=== PATIENT | male | born 1985 | race Caucasian/White ===

== ENCOUNTER 2017-09-19 10:56 | Emergency (ER) | payer OTHER ==
[~2017-09-19] VITALS: Ht 182.9 cm; Wt 111.1 kg
[2017-09-19] MEDS ORDERED: AZIT250 PO (11:12)
[2017-09-19] MEDS ORDERED: Cleocin HCl300 MG PO (11:39)
[2017-09-19] MEDS ORDERED: Ultram50 MG PO (11:39)
== END 2017-09-19 12:00 | disposition home or self-care (01) ==
LOC: ER 10:56
DX: K02.9 Dental caries, unspecified (principal); Z79.2 Long term (current) use of antibiotics
CPT/HCPCS: 99283

== ENCOUNTER 2019-09-13 10:37 | Emergency (ER) | payer SELFPAY ==
[~2019-09-13] VITALS: Ht 177.8 cm; Wt 113.4 kg
[~2019-09-13 10:37] MED LIST: AZIT250 PO; Bactrim Ds Tab1 EACH PO; CEPH500 PO; Cleocin HCl300 MG PO; Ultram50 MG PO
[2019-09-13] MEDS ORDERED: IBUP800 PO (11:51)
[2019-09-13] MEDS ORDERED: Percocet 5-3251 EACH PO (11:51)
[2019-09-13] MEDS ORDERED: CRUTCH2 XX (12:03)
== END 2019-09-13 12:08 | disposition home or self-care (01) ==
LOC: ER 10:37
DX: S82.301A Unspecified fracture of lower end of right tibia, initial encounter for closed fracture (principal); S82.831A Other fracture of upper and lower end of right fibula, initial encounter for closed fracture; Z87.891 Personal history of nicotine dependence; X58.XXXA Exposure to other specified factors, initial encounter
CPT/HCPCS: 29515; 73590; 73610; 73630; 99283-25

== ENCOUNTER 2019-09-28 21:31 | Emergency (ER) | payer SELFPAY ==
[~2019-09-28] VITALS: Ht 182.9 cm; Wt 117.9 kg
[~2019-09-28 21:31] MED LIST changes: +CRUTCH2 XX; +IBUP800 PO; +Percocet 5-3251 EACH PO
[2019-09-28] MEDS ORDERED: NARCAN4 MG (22:20)
== END 2019-09-28 23:07 | disposition home or self-care (01) ==
LOC: ER 21:31
DX: T40.2X1A Poisoning by other opioids, accidental (unintentional), initial encounter (principal); G89.29 Other chronic pain; M25.579 Pain in unspecified ankle and joints of unspecified foot; F17.210 Nicotine dependence, cigarettes, uncomplicated
CPT/HCPCS: 99284

== ENCOUNTER 2020-04-08 02:16 | Observation (INO) | payer OTHER ==
[~2020-04-08] VITALS: Ht 185.4 cm; Wt 120.2 kg
[~2020-04-08 02:16] MED LIST changes: +NARCAN4 MG
[2020-04-08 03:21] LABS: Source, Urine Clean Catch
[2020-04-08 03:27] LABS: BASOPHILS ABSOLUTE AUTO 0.07 K/mm3 (0.00-0.23); BASOPHILS PERCENT AUTO 1 % (0-2); EOSINOPHILS ABSOLUTE AUTO 0.14 K/mm3 (0.00-0.68); EOSINOPHILS PERCENT AUTO 1 % (0-6); Hematocrit 49.3 % (37.0-53.0); Hemoglobin 16.6 g/dL (13.5-17.5); IMMATURE GRAN ABSOLUTE AUTO 0.06 K/mm3 (0.00-0.10); IMMATURE GRAN PERCENT AUTO 0 % (0-1); LYMPHOCYTES ABSOLUTE AUTO 1.71 K/mm3 (0.84-5.20); LYMPHOCYTES PERCENT AUTO 13 % (21-46); MONOCYTES ABSOLUTE AUTO 0.89 K/mm3 (0.16-1.47); MONOCYTES PERCENT AUTO 7 % (4-13); Mean Corpuscular HGB Conc 33.7 g/dL (31.5-36.5); Mean Corpuscular Volume 92 fL (80-100); NEUTROPHILS ABSOLUTE AUTO 10.74 K/mm3 (1.96-9.15); NEUTROPHILS PERCENT AUTO 79 % (41-73); Platelet Count 234 K/mm3 (150-400); RDW Coefficient Variation 11.6 % (11.7-14.2); RDW Standard Deviation 39.1 fL (35.1-46.3); Red Blood Cell Count 5.35 M/mm3 (4.30-5.90); White Blood Cell Count 13.61 K/mm3 (4.00-11.30)
[2020-04-08 03:27] LABS: Bilirubin, Urine Neg (Neg); Blood, Urine 1+ (Neg); Glucose Qualitative, Urine 4+ (Neg); Ketones, Urine 1+ (Neg); Leukocyte Esterase, Urine 2+ (Neg); Nitrite, Urine Pos (Neg); Protein, Urine 3+ (Neg); Urobilinogen, Urine NORM (Normal)
[2020-04-08 03:29] LABS: Appearance, Urine Cloudy (Clear); Color, Urine Yellow (P-Yellow)
[2020-04-08 03:35] LABS: Bacteria Many /hpf; Red Blood Cells, Urine 0-2 /hpf (0-2); Squamous Epithelial Cells Not Seen /hpf (Few); White Blood Cells, Urine 25-50 /hpf (0-5)
[2020-04-08 03:36] LABS: U Amphetamine Screen DETECTED; U Barbituate Screen Not Detected; U Benzodiazapine Screen Not Detected; U Buprenorphine Screen Not Detected; U Cannabinoids Screen DETECTED; U Cocaine Screen Not Detected; U Methadone Screen Not Detected; U Methamphetamine Screen DETECTED; U Opiates Screen Not Detected; U Oxycodone Screen Not Detected; U Phencyclidine Screen Not Detected; U Propoxyphene Screen Not Detected
[2020-04-08 03:41] LABS: International Normalized Ratio 1.02; Prothrombin Time Results 10.9 Sec (9.7-11.5)
[2020-04-08 03:46] LABS: Alanine Aminotransfer (ALT/SGP 302 U/L (12-78); Albumin, Blood 4.2 g/dL (3.4-5.0); Albumin/Globulin Ratio 0.9 (0.8-1.8); Alk Phos 134 U/L (50-136); Anion Gap 12 mmol/L (6-16); Aspartate Aminotrans (AST/SGOT 258 U/L (12-37); Bilirubin, Total 0.7 mg/dL (0.1-1.0); Blood Urea Nitrogen 16 mg/dL (8-24); Bun/Creatinine Ratio 25.9 (12.0-20.0); CO2, Blood 23 mmol/L (21-32); CPK Creatine Kinase 383 U/L (39-308); Chloride, Blood 104 mmol/L (98-108); Creatinine, Blood 0.62 mg/dL (0.60-1.20); Ethanol (Alcohol), Blood, Med <3 mg/dL; Globulin, Blood 4.5 g/dL (2.2-4.0); Glomerular Filtration Rate >60 (60-); Glucose, Blood 383 mg/dL (70-99); Potassium, Blood 3.8 mmol/L (3.5-5.5); Salicylate 2.6 mg/dL (2.8-20.0); Sodium, Blood 139 mmol/L (136-145); Total Protein, Blood 8.7 g/dL (6.4-8.2)
[2020-04-08 03:56] LABS: Acetaminophen, Random <2.0 ug/mL (10.0-30.0)
[2020-04-08 04:01] LABS: Osmolality, Serum 318 mos/KG (275-300)
[2020-04-08 04:15] LABS: Creatine Kinase MB 2.6 ng/mL (0.0-3.6); Creatine Kinase MB Index 0.7 (0.0-4.0)
== END 2020-04-08 11:30 | disposition home or self-care (01) ==
LOC: ER 02:16 → EOR 02:17
PROVIDERS: ADMIT Emergency Medicine
DX: R45.1 Restlessness and agitation (principal); T40.995A Adverse effect of other psychodysleptics [hallucinogens], initial encounter; F17.210 Nicotine dependence, cigarettes, uncomplicated; Z79.899 Other long term (current) drug therapy
CPT/HCPCS: 36415; 70450; 70486; 72125; 80053; 81001; 82550; 82553; 83930; 85025; 85610; 87077; 87086; 87186; 93005; 93010; 96374; 96375; 96376; 99285-25; G0378; G0480; J1630; J2060

== ENCOUNTER 2020-05-30 23:23 | Inpatient (IN) | payer OTHER ==
[~2020-05-30] VITALS: Ht 182.9 cm; Wt 102.4 kg
[2020-05-31 01:49] LABS: BASOPHILS PERCENT AUTO 1 % (0-2); EOSINOPHILS ABSOLUTE AUTO 0.05 K/mm3 (0.00-0.68); EOSINOPHILS PERCENT AUTO 0 % (0-6); Hematocrit 32.2 % (37.0-53.0); Hemoglobin 10.6 g/dL (13.5-17.5); IMMATURE GRAN ABSOLUTE AUTO 0.98 K/mm3 (0.00-0.10); IMMATURE GRAN PERCENT AUTO 8 % (0-1); LYMPHOCYTES ABSOLUTE AUTO 1.13 K/mm3 (0.84-5.20); LYMPHOCYTES PERCENT AUTO 9 % (21-46); MONOCYTES ABSOLUTE AUTO 1.79 K/mm3 (0.16-1.47); MONOCYTES PERCENT AUTO 14 % (4-13); Mean Corpuscular HGB 30.7 pg (26.0-34.0); Mean Corpuscular HGB Conc 32.9 g/dL (31.5-36.5); Mean Corpuscular Volume 93 fL (80-100); Mean Platelet Volume 10.6 fL (9.1-12.4); NEUTROPHILS ABSOLUTE AUTO 8.35 K/mm3 (1.96-9.15); NEUTROPHILS PERCENT AUTO 67 % (41-73); Platelet Count 305 K/mm3 (150-400); RDW Coefficient Variation 12.9 % (11.7-14.2); RDW Standard Deviation 44.1 fL (35.1-46.3); Red Blood Cell Count 3.45 M/mm3 (4.30-5.90)
[2020-05-31 02:09] LABS: BAND PERCENT MAN 20 % (0-8); BASOPHILS PERCENT MAN 0 % (0-2); EOSINOPHILS ABSOLUTE MAN 0.24 K/mm3 (0.00-0.68); EOSINOPHILS PERCENT MAN 2 % (0-6); LYMPHOCYTES ABSOLUTE MAN 0.49 K/mm3 (0.84-5.20); LYMPHOCYTES PERCENT MAN 4 % (21-46); MONOCYTES ABSOLUTE MAN 0.99 K/mm3 (0.16-1.47); MONOCYTES PERCENT MAN 8 % (4-13); MYELOCYTE ABSOLUTE MAN 0.24 K/mm3 (0.00-0.00); MYELOCYTE PERCENT MAN 2 % (0-0); NEUTROPHILS ABSOLUTE MAN 10.41 K/mm3 (1.96-9.15); SEG NEUTROPHILS PERCENT MAN 64 % (41-73); TOTAL CELLS COUNTED 100
[2020-05-31 02:35] LABS: Alanine Aminotransfer (ALT/SGP 46 U/L (12-78); Albumin, Blood 1.4 g/dL (3.4-5.0); Albumin/Globulin Ratio 0.3 (0.8-1.8); Alk Phos 209 U/L (50-136); Anion Gap 7 mmol/L (6-16); Aspartate Aminotrans (AST/SGOT 30 U/L (12-37); Bilirubin, Total 0.4 mg/dL (0.1-1.0); Blood Urea Nitrogen 22 mg/dL (8-24); Bun/Creatinine Ratio 37.5 (12.0-20.0); CO2, Blood 28 mmol/L (21-32); Calcium, Blood 8.4 mg/dL (8.5-10.1); Chloride, Blood 86 mmol/L (98-108); Creatinine, Blood 0.59 mg/dL (0.60-1.20); Globulin, Blood 4.8 g/dL (2.2-4.0); Glomerular Filtration Rate >60 (60-); Glucose, Blood 870 mg/dL (70-99); Potassium, Blood 5.4 mmol/L (3.5-5.5); Sodium, Blood 121 mmol/L (136-145); Total Protein, Blood 6.2 g/dL (6.4-8.2)
[2020-05-31 04:52] LABS: Glucose, Blood 597 mg/dL (70-99)
[2020-05-31 06:33] LABS: Hematocrit 30.4 % (37.0-53.0); Hemoglobin 10.4 g/dL (13.5-17.5); Mean Corpuscular HGB 30.8 pg (26.0-34.0); Mean Corpuscular HGB Conc 34.2 g/dL (31.5-36.5); Mean Corpuscular Volume 90 fL (80-100); Mean Platelet Volume 10.2 fL (9.1-12.4); Platelet Count 304 K/mm3 (150-400); RDW Coefficient Variation 12.4 % (11.7-14.2); RDW Standard Deviation 41.1 fL (35.1-46.3); Red Blood Cell Count 3.38 M/mm3 (4.30-5.90); White Blood Cell Count 12.73 K/mm3 (4.00-11.30)
[2020-05-31 07:02] LABS: Alanine Aminotransfer (ALT/SGP 48 U/L (12-78); Albumin, Blood 1.4 g/dL (3.4-5.0); Albumin/Globulin Ratio 0.3 (0.8-1.8); Alk Phos 188 U/L (50-136); Anion Gap 9 mmol/L (6-16); Aspartate Aminotrans (AST/SGOT 33 U/L (12-37); Bilirubin, Total 0.5 mg/dL (0.1-1.0); Blood Urea Nitrogen 19 mg/dL (8-24); Bun/Creatinine Ratio 34.7 (12.0-20.0); CO2, Blood 28 mmol/L (21-32); Calcium, Blood 8.3 mg/dL (8.5-10.1); Chloride, Blood 96 mmol/L (98-108); Creatinine, Blood 0.55 mg/dL (0.60-1.20); Globulin, Blood 4.8 g/dL (2.2-4.0); Glomerular Filtration Rate >60 (60-); Glucose, Blood 456 mg/dL (70-99); Potassium, Blood 3.9 mmol/L (3.5-5.5); Sodium, Blood 133 mmol/L (136-145); Total Protein, Blood 6.2 g/dL (6.4-8.2)
[2020-05-31 07:08] LABS: BAND PERCENT MAN 22 % (0-8); BASOPHILS PERCENT MAN 0 % (0-2); EOSINOPHILS PERCENT MAN 0 % (0-6); LYMPHOCYTES ABSOLUTE MAN 1.14 K/mm3 (0.84-5.20); LYMPHOCYTES PERCENT MAN 9 % (21-46); METAMYELOCYTE ABSOLUTE MAN 0.12 K/mm3 (0.00-0.00); METAMYELOCYTE PERCENT MAN 1 % (0-0); MONOCYTES ABSOLUTE MAN 1.27 K/mm3 (0.16-1.47); MONOCYTES PERCENT MAN 10 % (4-13); NEUTROPHILS ABSOLUTE MAN 10.18 K/mm3 (1.96-9.15); SEG NEUTROPHILS PERCENT MAN 58 % (41-73); TOTAL CELLS COUNTED 100
--- NOTE | 2020-05-31 07:13 | NUR ---
ASSESSMENT/ADMIT PT ADMITTED TO ICU 02 AT 0545. PT ARRIVED VIA GURNEY. STOOD AND TRANSFERED WITH STANDBY ASSIST. LUNGS CLEAR ON ROOM AIR. RESP EVEN AND NONLABORED. DENIES SOB. NONPRODUCTIVE COUGHT NOTED. HEART RATE TACHY 120-130. BP STABLE. RIGHT SHOULDER RED, HOT TO TOUCH AND TIGHT. PHOTO TAKEN AND EDGES MARKED. BT+ ABD SOFT AND NONTENDER. DENIES N/V. PT STATES,"I'M REALLY THIRSTY AND WANT SOMETHING TO DRINK". EXPLAINED NPO DUE TO POSSIBLE SURG. IV 20G TO RIGHT HAND WITH NS BOLUS INFUSING AND INSULIN AT 5 UNITS. BLOOD GLUCOSE 456. CONT INSULIN AT 5 UNITS AT THIS TIME. PT ANSWERING QUESTIONS APPROP. C/O PAIN TO RIGHT SHOULDER "03/30" PT MED WITH FENTANYL 50 MCQ AND TORADOL AT 0652. PT REPORTS PAIN IS "BETTER". REPORT GIVEN TO FARIHA BOYER RN.
[2020-05-31 07:27] LABS: Glucose, Blood 461 mg/dL (70-99)
[2020-05-31 08:49] LABS: Influenza A, PCR Negative (NEGATIVE); Influenza B, PCR Negative (NEGATIVE); Resp Syncytial Virus, PCR Negative (NEGATIVE); SARS-Cov-2 (COVID-19) PCR, MMC Negative (NEGATIVE)
--- NOTE | 2020-05-31 08:53 | NUR ---
Echocardiogram completed.
--- NOTE | 2020-05-31 09:13 | NUR ---
PT A/O AND STATES THAT R SHOULDER PAIN IS IMPROVED AFTER MEDS. PT IS ABLE TO MOVE ARM BUT WITH PAIN. R SHOULDER IS VISABLE SWOLLEN AND RED AND MARKED. XRAY IN TO EVALUATE AND COVID SWAB SENT. NS BOLUS COMPLETE AND NS TO 100ML, AND INSULIN GTT AT 5UNITS AND PER CBG CHECKS. PT IS VOIDING, NO RESP. DISTRESS OTHER THAN SHOULDER. ILANA GOMES SPOKE WITH RE PO MEDS AND S.T. HAS BEEN CONTACTED FOR PO INTAKE.
--- NOTE | 2020-05-31 10:56 | NUR ---
PT REQUESTING TO LEAVE AMA PT AGGITATED IN ROOM, PULLING OFF BLOOD PRESSURE CUFF AND REQUESTING IVS BE REMOVED. TALKED WITH PT ABOUT THE SEVERITY OF THE INFECTION IN HIS SHOULDER AND THE RISKS OF LEAVING. PT. REPORTS UNDERSTANDING THE RISKS, AND STATES "I DONT CARE I WANT TO LEAVE, I THOUGHT THIS WAS GOING TO HAPPEN THIS MORNING AND IM UNCOMFORTABLE AND THIRSTY AND IM LEAVING". OFFERED ORAL CARE WHICH PT REFUSED. SPOKE WITH OR TO FIND OUT ABOUT TIME FOR POSSIBLE PROCEDURE PER PT REQUEST, AND NOTIFIED THEM THAT PT WAS WANTING TO LEAVE AMA. PER OR STAFF APPROX 2 HOURS UNTIL PROCEDURE. PT NOTIFIED OF THIS, AND DICUSSED WITH PT RISKS VS WAITING FOR A COUPLE OF HOURS. PT. FRUSTRATED HOWEVER AGGREED TO STAY FOR PROCEDURE AT THIS TIME. PRIMARY RN NOTIFIED. CALL LIGHT IN REACH.
--- NOTE | 2020-05-31 11:24 | NUR ---
1050 PT REQUESTING TO LEAVE AMA. CONTACT MADE WITH DR CORONADO AND PT TO GO TO SURG. IN APPROX 2 HOURS. PT EDUCATED TO REASONS TO STAY IN HOSP AND BLOOD SUGARS WITH SHOULDER ISSUES WERE ADDRESSES WITH PT. AFTER THINKING AND TALKING TO SHOPPERBENIGNO SULLIVAN, PT AGGREED TO STAY FOR NOW. DR CORONADO TENTITIVE PLAN SHARED WITH PT.
--- NOTE | 2020-05-31 11:47 | NUR ---
PT PAIN IS NOT GONE BUT HE IS MANNAGING AT THE CURRENT STATE. PT BP SL ELEVATED, REPORTED AND WILL FOLLOW. PT DOES NOTE APPEAR TO BE IN DT'S. PT HAS STOOD TO VOID AND WILL OBTAIN U.A. KEITH. INSULIN GTT IS AT 5 UNITS/HR AND THIS WAS REPORTED TO DR GALINDO AND DAY SURG. RN. PT HAS TAKEN ICE CHIPS BUT OTHERWISE NPO. NO LOVENOX OBTAINED FOR DVT ISSUES DUE TO PENDING SURGERY.
--- NOTE | 2020-05-31 12:54 | NUR ---
PT TO OR VIA [facility].
--- NOTE | 2020-05-31 13:15 | NUR ---
History, Chart, Medications and Allergies reviewed before start of procedure.Lungs clear T/O to Auscultation. Patient confirms NPO status and agrees with scheduled surgery. Pre-Op teaching done. Pt verbalizes understanding.
--- NOTE | 2020-05-31 13:41 | NUR ---
1300-NACHO PT TO SURG. WITH STAFF. PT REMAINS ON INSULIN GTT, NS 100 ML, VANCOMYCIN IVPB.
--- NOTE | 2020-05-31 16:23 | NUR ---
05/31/20 1623 Elle Cordon RASMUSSEN CATH INSERTED BY ABEL SMILEY PER DR. OLMEDO ORDERS. NO URINE FLASH, BRIGHT RED BLOOD FLASH. RASMUSSEN WAS REMOVED AND DR. CORONADO ATTEMPTED TO PLACE ANOTHER RASMUSSEN, NO URINE FLASH. RASMUSSEN FLUSHED WITH WATER. RASMUSSEN REMAINED FOR THE PROCEDURE. NO URINE DRAINED INTO BAG. BLADDER SCAN DONE, 650CC OF FLUID NOTED IN BLADDER. DR. CORONADO ATTEMPTED TO PLACE ANOTHER RASMUSSEN AND ONLY GOT BLOOD BACK. RASMUSSEN REMOVED. WHILE PT WAS WAS EMERGING FROM ANESTHDSIA BLOOD CLOT AND URINE EXPELLED FROM THE PT'S BLADDER SOAKING BED SHEETS. REPORT GIVEN TO PACU STAFF, DARIAN HERRING RN.
--- NOTE | 2020-05-31 19:03 | NUR ---
SUMMARY AND TRANFSER NOTE. REPORT CALLED TO POLINA PELAEZ ON SURG FLOOR AT 1830 AND PT TO TRANSFER TO FLOOR ON PACU [facility]. PT IS TAKING PO WELL AND VERBALIZING PLEASURE IN HAVING MADE THE RIGHT DECISION TO STAY IN HOSPITAL AND HAVE THE SURGERY. PT DENIES PAIN CURRENTLY. VS NOTED. PT IV NS AT 125 ML AND ABX INFUSING FROM [address] PRYOR ORDERED THE CONTINUATION OF PRIOR MEDS AND ABX WITH INSULLIN CHANGE TO SC AC/HS. PT WOUND VAC IS DRAINING PURULANT DRAINAGE OF BLOODY AND PUSSY TISSUE DRAINAGE. PT CURRENTLY HAS 3 PERIPHERAL IV SITES. PT EXPRESSED GRATFULNESS FOR HIS CARE AND WAS TRANSFERED TO 230 SURG FLOOR PER [facility]. PT WAS AGAIN ABLE TO SAKU254 ML OF DARK ORANGE URNINE W/O EVIDENCE OF VISUAL BLOOD EXCEPT AROUND THE LID OF URINAL AND PT ABLE TO MAKE A STREAM OF URNINE.
[2020-05-31 20:29] LABS: Vancomycin, Trough 7.4 ug/mL (5.0-10.0)
[2020-05-31 21:32] LABS: Source, Urine Clean Catch
[2020-05-31 21:34] LABS: Bilirubin, Urine Neg (Neg); Blood, Urine 5+ (Neg); Glucose Qualitative, Urine 4+ (Neg); Ketones, Urine 1+ (Neg); Leukocyte Esterase, Urine 1+ (Neg); Nitrite, Urine Neg (Neg); Protein, Urine 1+ (Neg); Urobilinogen, Urine NORM (Normal); pH, Urine 6.5 (5.0-8.0)
[2020-05-31 21:39] LABS: Appearance, Urine Clear (Clear); Color, Urine Yellow (P-Yellow)
[2020-05-31 21:41] LABS: Bacteria Mod /hpf; Red Blood Cells, Urine 50-100 /hpf (0-2); Squamous Epithelial Cells Few /hpf (Few)
[2020-05-31 21:53] LABS: U Amphetamine Screen Not Detected; U Barbituate Screen Not Detected; U Benzodiazapine Screen Not Detected; U Buprenorphine Screen Not Detected; U Cannabinoids Screen DETECTED; U Cocaine Screen Not Detected; U Methadone Screen Not Detected; U Methamphetamine Screen Not Detected; U Opiates Screen DETECTED; U Oxycodone Screen Not Detected; U Phencyclidine Screen Not Detected
[2020-05-31 21:54] LABS: U Propoxyphene Screen Not Detected
[2020-06-01 04:10] LABS: BASOPHILS ABSOLUTE AUTO 0.11 K/mm3 (0.00-0.23); BASOPHILS PERCENT AUTO 1 % (0-2); Hematocrit 27.7 % (37.0-53.0); Hemoglobin 9.2 g/dL (13.5-17.5); LYMPHOCYTES ABSOLUTE AUTO 1.98 K/mm3 (0.84-5.20); LYMPHOCYTES PERCENT AUTO 16 % (21-46); MONOCYTES ABSOLUTE AUTO 1.52 K/mm3 (0.16-1.47); MONOCYTES PERCENT AUTO 13 % (4-13); Mean Corpuscular HGB 30.9 pg (26.0-34.0); Mean Corpuscular HGB Conc 33.2 g/dL (31.5-36.5); Mean Corpuscular Volume 93 fL (80-100); Mean Platelet Volume 10.4 fL (9.1-12.4); Platelet Count 309 K/mm3 (150-400); RDW Standard Deviation 44.2 fL (35.1-46.3); Red Blood Cell Count 2.98 M/mm3 (4.30-5.90)
[2020-06-01 04:13] LABS: EOSINOPHILS ABSOLUTE AUTO 0.08 K/mm3 (0.00-0.68); EOSINOPHILS PERCENT AUTO 1 % (0-6); IMMATURE GRAN ABSOLUTE AUTO 0.79 K/mm3 (0.00-0.10); IMMATURE GRAN PERCENT AUTO 7 % (0-1); NEUTROPHILS ABSOLUTE AUTO 7.62 K/mm3 (1.96-9.15); NEUTROPHILS PERCENT AUTO 63 % (41-73)
[2020-06-01 04:29] LABS: Alanine Aminotransfer (ALT/SGP 75 U/L (12-78); Albumin, Blood 1.4 g/dL (3.4-5.0); Albumin/Globulin Ratio 0.3 (0.8-1.8); Alk Phos 141 U/L (50-136); Anion Gap 5 mmol/L (6-16); Aspartate Aminotrans (AST/SGOT 94 U/L (12-37); Bilirubin, Total 0.6 mg/dL (0.1-1.0); Blood Urea Nitrogen 12 mg/dL (8-24); CO2, Blood 27 mmol/L (21-32); Calcium, Blood 7.4 mg/dL (8.5-10.1); Chloride, Blood 95 mmol/L (98-108); Creatinine, Blood 0.57 mg/dL (0.60-1.20); Globulin, Blood 4.5 g/dL (2.2-4.0); Glomerular Filtration Rate >60 (60-); Glucose, Blood 484 mg/dL (70-99); Potassium, Blood 3.7 mmol/L (3.5-5.5); Sodium, Blood 127 mmol/L (136-145); Total Protein, Blood 5.9 g/dL (6.4-8.2)
--- NOTE | 2020-06-01 04:33 | NUR ---
SHIFT SUMMARY POD#1 RIGHT SHOULDER I+D. AAOX4. PT ANXIOUS AND REFUSING CARE UPON ARRIVAL TO UNIT FROM ICU. PT ENCOURAGED TO STAY + PT AGREED. PT PLEASENT + COOPERATIVE WITH CARE SINCE. DISCOMFORT CONTROLLED WITH 50mcg FENTANYL Q4H + TORADOL X1 THIS SHIFT. NO NAUSEA/EMESIS. DRESSING TO RIGHT SHOULDER C/D/I, 200cc SS OUT IN WOUND VAC. MOVES ALL FINGERS WELL, DENIES N/T + CAP REFILL BRISK BUE. IVF + ABX PER ORDERS. ELEVATED BLOOD SUGARS NOTED THIS SHIFT, DR MEYER NOTIFIED + NEW ORDERS TO INCREASE TO MEDIUM SLIDING SCALE. PT NEEDS CONTINUING EDUCATION REGARDING ADA DIET. GOOD PO INTAKE + OUTPUT. SCANT AMOUNT OF BLOOD NOTED FROM URETHRA, DECREASING WITH EACH VOID PER PT, CONTINUE TO MONITOR. PT CURRENTLY SITTING UP IN BED WATCHING TV WITH CALL LIGHT IN REACH.
[2020-06-01 04:34] LABS: BAND PERCENT MAN 4 % (0-8); BASOPHILS PERCENT MAN 0 % (0-2); EOSINOPHILS PERCENT MAN 0 % (0-6); LYMPHOCYTES ABSOLUTE MAN 2.05 K/mm3 (0.84-5.20); LYMPHOCYTES PERCENT MAN 17 % (21-46); METAMYELOCYTE ABSOLUTE MAN 0.36 K/mm3 (0.00-0.00); METAMYELOCYTE PERCENT MAN 3 % (0-0); MONOCYTES ABSOLUTE MAN 0.48 K/mm3 (0.16-1.47); MONOCYTES PERCENT MAN 4 % (4-13); MYELOCYTE ABSOLUTE MAN 0.12 K/mm3 (0.00-0.00); MYELOCYTE PERCENT MAN 1 % (0-0); NEUTROPHILS ABSOLUTE MAN 9.07 K/mm3 (1.96-9.15); SEG NEUTROPHILS PERCENT MAN 71 % (41-73); TOTAL CELLS COUNTED 100
--- NOTE | 2020-06-01 07:30 | NUR ---
ASSUMED CARE: PT LAYING IN BED, AWAKE, WATCHING TV, TALKING TO STAFF. INSTRUCTED THAT WE NEED TO BE STRICT WITH FOOD AND DRINK DUE TO HYPERGLYCEMIA. PT RECEPTIVE BUT FRUSTRATED. MEDICATED FOR SHOULDER PAIN. WOUND VAC IN PLACE WITH PINK/RED SEROSANQUINOUS DRAINAGE AT THIS TIME. NO FURTHER NEEDS OR CONCERNS.
--- NOTE | 2020-06-01 08:05 | NUR ---
CALL TO DR SUE TO RELAY PT'S CBGS. TO REVIEW CHART AND ORDER FURTHER TREATMENTS.
--- NOTE | 2020-06-01 12:23 | NUR ---
CALL TO DR SUE REGARDING PT'S CBGS. NEW ORDERS FOR SLIDING SCALE. ALSO RELAYED TO THAT PAIN MANAGEMENT IS POOR DUE TO PT NEEDING PAIN MEDS OFTEN HE CAN GET THEM WELL NEEDING PAIN MEDS SOONER THAN AVAILABLE. NOTED THAT PT'S RIGHT SHOULDER APPEARS MORE RED AND INFLAMMED AFTER SHOWER. OFFERED ICE WHICH PT DECLINED. EXHAUST MACHINE OPERATOR AWARE.
[2020-06-01 13:47] LABS: Vancomycin, Trough 9.6 ug/mL (5.0-10.0)
--- NOTE | 2020-06-01 15:54 | NUR ---
CALL TO DR SUE REGARDING PT'S BLEEDING FROM URETHRA. DR INSTRUCTS TO MONITOR COLOR OF URINE AND WATCH FOR CONTINUED IMPROVEMENT. EXAMINED PT'S PENIS AND NOTED NO OPEN SORES AND PT REPORTS ONLY BLEEDS WHEN URINATING FROM URETHRA. PT'S WOUND VAC HAD BLOOD POOLING UNDER DRESSING. ACID LEVELER EXAMINED AND REVIEWED DR NOTES AND DETERMINED THAT WOUND IS SOMETHING DR SHOULD ADDRESS BECAUSE OF HOW EXTENSIVE IT IS. PA ARRIVED AND CHANGED OUT DRESSING. INSTRUCTS THAT REINFORCEMENT OF PLASTIC LAYER IS OK FOR STAFF TO DO BUT TO LEAVE PACKING ALONE
--- NOTE | 2020-06-01 18:09 | NUR ---
SHIFT SUMMARY: PT'S WOUND VAC IN PLACE TO RIGHT SHOULDER, DRAINING PINK AND MARGOTH BROWN FLUID. PA FOR DR CORONADO CAME TO ASSESS AND CHANGE DRESSING TODAY. PT ALSO HAS SOME BLEEDING FROM URETHRA WITH URNIATION. DR CARDOZANG AWARE OF PT'S HYPERGLYCEMIA AND HAS ADJUSTED MED ORDERS THIS PM. PT'S PAIN MANAGEMENT HAS BEEN ADJUSTED THIS SHIFT DUE TO PAIN THAT HAS NOT BEEN WELL MANAGED WITH RECENT ORDERS. PT'S MOTHER CAME TO VISIT THIS SHIFT. NO FURTHER NEEDS OR CONCERNS AT THIS TIME.
[2020-06-01 20:34] LABS: Glucose, Blood 455 mg/dL (70-99)
[2020-06-02 04:42] LABS: Albumin, Blood 1.5 g/dL (3.4-5.0); Anion Gap 6 mmol/L (6-16); Blood Urea Nitrogen 14 mg/dL (8-24); Bun/Creatinine Ratio 25.3 (12.0-20.0); CO2, Blood 27 mmol/L (21-32); Calcium, Blood 7.8 mg/dL (8.5-10.1); Chloride, Blood 98 mmol/L (98-108); Creatinine, Blood 0.55 mg/dL (0.60-1.20); Glomerular Filtration Rate >60 (60-); Glucose, Blood 243 mg/dL (70-99); Phosphorus, Blood 2.1 mg/dL (2.5-4.9); Potassium, Blood 3.6 mmol/L (3.5-5.5); Sodium, Blood 131 mmol/L (136-145)
--- NOTE | 2020-06-02 04:47 | NUR ---
SHIFT SUMMARY PT IS A/O X4, SBA/IND IN ROOM. WOUND VAC TO R SHOULDER, FOAM COMPRESSED, GREEN LIGHT ON WOUND VAC WITH SS DRAINAGE. THERE HAS BEEN LEAKING ON THE LOWER END OF THE DRESSING, WHICH HAS BEEN REINFORCED T/O THE SHIFT. PAIN MANAGED WITH PO PAIN MED PER ORDERS AND TORADOL X1 OVERNIGHT. PT ALSO HAVING SOME BLOOD IN URINE T/O THE SHIFT. CBG HAS BEEN ELEVATED OVERNIGHT. HOSPITALIST CALLED AROUND 2029 REGARDING GLUCOSE; ORDERS GIVEN TO CHECK CBG Q4 AND GIVE HUMALOG HIGH SS Q4 UNTIL CBG LESS THAN 300. CBG AT 0400 WAS 275. PT HAS ALSO BEEN NPO PER ORDERS SINCE MIDNIGHT. PLAN FOR SURGERY TODAY WITH DR. CORONADO. PT RESTING IN BED AT THIS TIME WITH CALL LIGHT IN REACH.
--- NOTE | 2020-06-02 12:25 | NUR ---
INTO SDS VIA GURNEY FROM SURG ROOM. History, Chart, Medications and Allergies reviewed before start of procedure.Patient confirms NPO status and agrees with scheduled surgery. Lungs clear T/O to Auscultation.
--- NOTE | 2020-06-02 16:00 | NUR ---
POST OP PT ARRIVES TO ROOM VIA GOURNEY. TRANSFERS SELF TO BED AND LAYS BACK. WOUND VAC TO R SHOULDER WNL. MIN DRAINAGE AT THIS TIME. C/O PAIN 12/28. CAP REFILL WNL TO R HAND. WARM & DRY, BUT PAINFUL TO MOVE. REQUESTS FOOD SO LATE LUNCH GIVEN. PLEASANT & COOPERATIVE.
[2020-06-03 05:12] LABS: Hematocrit 24.9 % (37.0-53.0); Hemoglobin 8.3 g/dL (13.5-17.5); Mean Corpuscular HGB 30.7 pg (26.0-34.0); Mean Corpuscular HGB Conc 33.3 g/dL (31.5-36.5); Mean Corpuscular Volume 92 fL (80-100); Mean Platelet Volume 10.4 fL (9.1-12.4); Platelet Count 400 K/mm3 (150-400); RDW Standard Deviation 43.2 fL (35.1-46.3); White Blood Cell Count 17.17 K/mm3 (4.00-11.30)
[2020-06-03 05:29] LABS: Albumin, Blood 1.4 g/dL (3.4-5.0); Anion Gap 8 mmol/L (6-16); Blood Urea Nitrogen 11 mg/dL (8-24); Bun/Creatinine Ratio 18.5 (12.0-20.0); CO2, Blood 25 mmol/L (21-32); Chloride, Blood 98 mmol/L (98-108); Creatinine, Blood 0.59 mg/dL (0.60-1.20); Glomerular Filtration Rate >60 (60-); Glucose, Blood 342 mg/dL (70-99); Phosphorus, Blood 3.7 mg/dL (2.5-4.9); Sodium, Blood 131 mmol/L (136-145)
--- NOTE | 2020-06-03 07:25 | NUR ---
SUMMARY PT VERB ADEQUATE PAIN CONTROL .CIRC CHECKS INTACT TO EXT.
--- NOTE | 2020-06-03 17:00 | NUR ---
CONSENT FOR HIV LAB DRAW PT WAS EDUCATED THAT DR. RAMOS ORDERED LABS TO CHECK FOR HIV AND HEPATITIS. PT GAVE VERBAL CONSENT FOR THIS RN TO OBTAIN BLOOD SAMPLE TO BE SENT TO LAB AND TESTED FOR HIV AND HEPATITIS.
--- NOTE | 2020-06-03 18:58 | NUR ---
SHIFT SUMMARY PT IS POD #1 FROM I&D OF R SHOULDER. PAIN HAS BEEN MANAGED WITH PERCOCET ONLY AFTER DOSE WAS INCREASED. PT HAS BEEN INDEPENDENT IN THE ROOM. HE IS IN [employer] THIS AFTERNOON. HE ACTIVELY PARTICIPATES IN HIS CARE AND ASKS QUESTIONS TO LEARN ABOUT HIS NEW DIAGNOSIS OF DIABETES AND HOW TO BEST MANAGE IT. VSS. WILL MONITOR UNTIL REPORT TO ONCOMING RN.
--- NOTE | 2020-06-04 07:35 | NUR ---
SUMMARY PT PENDING OR THIS AM FOR I/D. PT WOKE AND BRP THIS AM WITH SUDDDEN COMPLAINT OF PAIN R AXILLARY LINE DOWN SIDE HALF WAY. REPORTS HURTS WITH RESPIRATIONS. SATS 95% I CALLED DR SUE AND ADVISED OF PT C/O UPSET/TEARFUL AND VS NOTED. DR SUE INSTRUCTED SHE WANTS PT TO RECEIVE A DOSE OF HIS PRN TORADOL ALREADY ORDERED.NO OTHER ORDERS RECEIVED.
--- NOTE | 2020-06-04 08:00 | NUR ---
ANXIETY/ RIGHT SIDED PAIN. AT APPROXIMATELY 0800 PT STARTED COMPLAINING OF PAIN TO HIS R SIDE. HE ALSO COMPLAINED OF SHORNESS OF BREATH. PT APPEARED ANXIOUS. HE WAS TAKING RAPID SHALLOW BREATHS BUT ABLE TO TAKE A DEEP BREATH WHEN INSTRUCTED. PT WAS SOBBING AND THRASHING IN BED. HE REPORTED HE DID NOT WANT TO HAVE SURGERY TODAY; PT STATED HE NEEDED ANOTHER DAY OF REST AND BECAUSE HE COULDN'T HANDLE SURGERY TODAY. PT WAS ASKED TO WAIT TO SPEAK WITH THE DOCTOR OR WAIT UNTIL HE WAS CALMER IN ORDER TO MAKE A SAFE AND EFFECTIVE DECISION REGARDING THE PROCEDURE. PT THEN STATED HE DRANK A GLASS OF WATER BECAUSE HE HAD TO "PLAY THE THE GAME LIKE Alumnize." PT WAS EDUCATED THAT HEALTHCARE IS NOT A GAME, AND THAT HE HAD THE RIGHT TO REFUSE TO HAVE SURGERY. EDUCATION WAS THEN REINFORCED THAT DECISIONS SHOULD NOT BE MADE OUT OF FEAR OR ANXIETY INSTEAD HE WAS ADVISED TO REMAIN NPO UNTIL HE COULD TALK WITH THE DOCTOR OR UNTIL HE WAS MORE RELAXED. DR. SUE NOTIFIED OF INCREASED ANXIETY AND RIGHT SIDED PAIN WITH SHORNESS OF BREATH BY SUZANNE BRANHAM RN; DR. SUE ADVISED GIVING TORADOL FOR PAIN MANAGMENT, NO FURTHER ORDERS. DR. CORONADO CONTACTED REGARDING CONCERNS FOR BLEEDING IF TORADOL WAS GIVEN, SHE VERBALIZED OK TO GIVE TORADOL. SHE WAS ALSO NOTFIED THAT PT REPORTED DRINKING WATER TO PREVENT GOING TO OR AND THAT HE APPEARED ANXIOUS. XANAX GIVEN PER DR. CORONADO, PT WAS ABLE TO RELAX AND DISCUSS CONCERNS WITH STAFF. HE THEN DECIDED THAT HE WOULD REMAIN NPO AND HAVE THE PROCEDURE TODAY. AFTER PT WAS ABLE TO RELAX HE REPORTED RELIEF FROM PAIN.
[2020-06-04 08:10] LABS: HIV SCREEN 4TH GENERATION WRFX Non Reactive (Non Reactive)
[2020-06-04 09:10] LABS: HBSAG SCREEN Negative (Negative); HEP B CORE AB, TOT Negative (Negative); HEP C VIRUS AB >11.0 (0.0-0.9)
--- NOTE | 2020-06-04 10:54 | NUR ---
PT TAKEN TO DAY SURGERY AT THIS TIME.
--- NOTE | 2020-06-04 11:57 | NUR ---
PT FROM ROOM 230 TO SDS. PT AMBULATORY ON ARRIVAL WITH WOUND VAC ON IV POLE./ PT BG CHECKED WITH RN PRESENT. PT PREPPERD FOR SUREGERY. WARM BLANKET AND LEMON SWABS PROVIDED. OPT DENIES ADDITIONAL NEEDS./
--- NOTE | 2020-06-04 12:39 | NUR ---
06/04/20 Yasemin Jerez WOUND VAC REMOVED PRIOR TO PREP. DR. CHUNG REMOVED ANTIBIOTIC BEADS.
--- NOTE | 2020-06-04 19:47 | NUR ---
SHIFT SUMMARY PT HAD AN I&D WITH CLOSURE OF R SHOULDER WOUND WITH DR. CHUNG TODAY. PT REPORTS PAIN HAS IMPROVED AFTER SURGERY. PT IS STILL TAKING 1-2 PERCOCET FOR PAIN MANAGEMENT. HEMOVAC DRAINS IN PLACE. PT HAS REMAINED HYPERTENSIVE BUT HAS NOT REQUIRED HYDRALAZINE. PT IS INDEPENDENT IN THE ROOM. VSS. REPORT GIVEN TO YONAS PELAEZ.
--- NOTE | 2020-06-05 06:20 | NUR ---
SHIFT SUMMARY: ANJELICA IS A&OX4. HE REPORTS SIGNIFICANT IMPROVEMENT SINCE ADMIT. HEMOVAC X 2 TO RIGHT SHOULDER PATENT. HE HAS BEEN WEARING THE SLING WHEN UP AND AROUND IN HIS ROOM. HE IS INDEPENDENT IN THE ROOM AND DENIES ANY DIFFICULTY UTILIZING THE BATHROOM. R HAND WITH MILD SWELLING. BLE WITH NONPITTING EDEMA WHICH HE STATES IS DEPENDENT. HE IS TAKING AN ACTIVE ROLL IN LEARNING ABOUT AND CARING FOR HIS DIABETES. HE USES THE CALL LIGHT APPROPRIATELY. HE REPORTS ADEQUATE PAIN CONTROL WITH THE TORADOL AND ORAL PAIN MEDICATION. HE IS SITTING ON THE BED WITH THE CALL LIGHT IN REACH. WILL REPORT TO DAY SHIFT RN.
--- NOTE | 2020-06-05 16:32 | NUR ---
PT HYPERTENSIVE 223/128-PT MEDICATED WITH 10 MG IV HYDRALAZINE PER EMAR. DR SUE NOTIFIED, NO NEW ORDERS AT THIS TIME
--- NOTE | 2020-06-05 16:32 | NUR ---
FURNITURE DESIGNER CALLED THIS NURSE INTO ROOM REPORTING ELEVATED BP. PT DENIED CHEST PAIN OR SHORTNESS OF BREATH. STATED HE FELT HE HAD A SLIGHT CHILL. ASKED FOR ROOM TEMP TO BE ELEVATED. ALERTED CHARGE NURSE TO VEWS SCORE OF 7 AND MEDICATED PATIENT WITH HYDRALAZINE PER EMAR. ENERGY RISK MANAGEMENT ANALYST SPOKE TO HOSPITALIST AND RECIEVED NO NEW ORDERS AT THIS TIME. PT CURRENTLY RESTING IN BED ON ROOM AIR, STILL DENIES CHEST PAIN. PT STATES CHILL IS EASING UP.
--- NOTE | 2020-06-05 19:52 | NUR ---
SHIFT SUMMARY POD 1 FROM I&D R SHOULDER. AA0X4.PT HAS BEEN TACHYCARDIC T/O SHIFT. SEE PREVIOUS NOTE FOR BP INCREASE. PT HAS DENIED FEELING CRUMMY SINCE RECIEVING MEDICATION AND BLOOD PRESSURE BACK TO NORMAL LEVELS. MEDICATED FOR PAIN PER EMAR. TOLERATES WELL WHEN MEDICATED. IND IN ROOM PT MOVING WELL NO WEAKNESS. PT MEDICATED WITH IV LASIX PER HOSPITALIST. EDEMA APPEARED TO INCREASE DURING SHIFT EVEN AFTER LASIX. PT DENIES CHEST PAIN OR ANY NEW SHORTNESS OF BREATH. HEMOVACS INTACT AND DRAINING MILKY RED DRAINAGE. AQUACELS CDI.
[2020-06-06 02:33] LABS: BASOPHILS ABSOLUTE AUTO 0.09 K/mm3 (0.00-0.23); BASOPHILS PERCENT AUTO 1 % (0-2); EOSINOPHILS ABSOLUTE AUTO 0.51 K/mm3 (0.00-0.68); EOSINOPHILS PERCENT AUTO 3 % (0-6); Hemoglobin 7.9 g/dL (13.5-17.5); IMMATURE GRAN ABSOLUTE AUTO 0.76 K/mm3 (0.00-0.10); IMMATURE GRAN PERCENT AUTO 4 % (0-1); LYMPHOCYTES ABSOLUTE AUTO 2.75 K/mm3 (0.84-5.20); LYMPHOCYTES PERCENT AUTO 15 % (21-46); MONOCYTES ABSOLUTE AUTO 1.51 K/mm3 (0.16-1.47); MONOCYTES PERCENT AUTO 8 % (4-13); Mean Corpuscular HGB 30.6 pg (26.0-34.0); Mean Corpuscular HGB Conc 31.6 g/dL (31.5-36.5); Mean Platelet Volume 9.8 fL (9.1-12.4); NEUTROPHILS PERCENT AUTO 69 % (41-73); Platelet Count 596 K/mm3 (150-400); RDW Coefficient Variation 13.2 % (11.7-14.2); RDW Standard Deviation 45.7 fL (35.1-46.3); Red Blood Cell Count 2.58 M/mm3 (4.30-5.90); White Blood Cell Count 18.22 K/mm3 (4.00-11.30)
[2020-06-06 02:41] LABS: Mean Corpuscular Volume 97 fL (80-100)
[2020-06-06 02:46] LABS: Albumin, Blood 1.6 g/dL (3.4-5.0); Anion Gap 6 mmol/L (6-16); Blood Urea Nitrogen 13 mg/dL (8-24); Bun/Creatinine Ratio 18.5 (12.0-20.0); CO2, Blood 28 mmol/L (21-32); Calcium, Blood 8.2 mg/dL (8.5-10.1); Chloride, Blood 96 mmol/L (98-108); Glomerular Filtration Rate >60 (60-); Glucose, Blood 162 mg/dL (70-99); Phosphorus, Blood 3.9 mg/dL (2.5-4.9); Potassium, Blood 3.6 mmol/L (3.5-5.5); Sodium, Blood 130 mmol/L (136-145)
--- NOTE | 2020-06-06 05:15 | NUR ---
SHIFT SUMMARY: ANJELICA IS A&OX4. VSS, NO ACUTE EVENTS OVERNIGHT. HE HAS HAD INCREASING ANXIETY THIS MORNING. HE REPORTS SOME RELIEF WITH 1 MG OF ATIVAN. HE STATES THAT HE HAS NOT SLEPT FOR MORE THAN A FEW HOURS FOR THE PAST THREE WEEKS. HE FEELS THAT IF HE WERE ABLE TO SLEEP FOR A FEW HOURS HE WOULD BE "A WHOLE DIFFERENT PERSON". HE IS INDEPENDENT IN THE ROOM. DRAINS INTACT. BLE WITH 3+ NON-PITTING EDEMA. HE WAS ENCOURAGED TO SLOW DOWN ON THE FLUID INTAKE. HE DID STATE THAT HE TOOK SEROQUEL IN THE PAST AND WOULD LIKE TO RESTART THAT MEDICATION. HE ALSO REQUESTED TO USE EDIBLES. HE WAS ENCOURAGED TO BRING THESE REQUESTS TO THE HOSPITALIST WHEN THEY ROUND TODAY AND A NOTE WAS PLACED ON HIS WHITE BOARD TO HELP HIM REMEMBER. HE WAS ENCOURAGED TO LIE DOWN WITH HIS FEET ELEVATED MULTIPLE TIMES DURING THE SHIFT. HE HAS SPENT THE MAJORITY OF THE SHIFT UP IN THE ROOM REARRANGING HIS BELONGINGS. HE IS TOLERATING PO INTAKE WELL. HE IS LYING IN BED WITH HIS CALL LIGHT IN REACH. HE DOES USE HIS CALL LIGHT APPROPRAITELY. WILL REPORT TO DAY SHIFT RN.
--- NOTE | 2020-06-06 12:08 | NUR ---
DR SUE INTO SEE PT. SPOKE TO PT ABOUT A FLUID RESTRICTION WHILE WE DIURESIS HIM. PT EDUCATED ON THIS AND HE CONFIRMS UNDERSTANDING. WORKED WITH HIM TO WRITE AMOUNTS ON HIS WHITE BOARD.
--- NOTE | 2020-06-06 19:52 | NUR ---
SHIFT SUMMARY POD 2 I&D OF R SHOULDER PT AAOX4. PAIN MANAGED PER EMAR. DRAINS PATENT AND DRAINING FLUID APPEARS TO BE LESS VISCOUS TODAY THAN YESTERDAY. PT SHOWS INCREASE ROM IN RIGHT SHOULDER AND STATES IT IS FEELING BETTER OVERALL. PT LOWER EXTREMETIES REMAIN VERY EDEMETOUS. IV LASIX GIVEN PER ORDERS. PT HAS BEEN HELPING TO MAINTAIN CAREFUL I&0. PT EDUCATED ON NEW FLUID RESTRICTION PER DR SUE OF 1500ML PER DAY. PT HELPING TO MONITOR ON WHITE BOARD. PT AGITATED OCCASIONALLY DURING SHIFT WHEN PROCEDURES OR CARE WAS NOT PROVIDED FAST ENOUGH FOR HIM. PT WOULD LATER APOLOGIZE FOR GETTING UPSET. PT IND IN ROOM AMBULATING FREQUENTLY TOLERATING PO WELL, VERY ACTIVE IN LEARNING TO MANAGE HSI DIABETES. ASKED FREQUENT QUESTIONS.
--- NOTE | 2020-06-06 21:30 | NUR ---
HEMOVAC TO ANTERIOR PORTION OF RIGHT SHOULDER NOT DRAINING, NOT HOLDING SUCTION. ON INSPECTION, DRAIN APPEARS TO HAVE BEEN DISLODGED. NOTIFIED SURGEON, ORDER TO CHANGE AQUACELL DRESSING OBTAINED. OLD AQUACELL REMOVED, AREA CLEANESED, AND NEW AQUACELL PLACED. WHEN HEMOVAC WAS COMPRESSED SUCKING SOUND WAS HEARD AT INSERTION SITE AND HEMOVAC DID NOT HOLD SUCTION. DRESSING REINFORCED WITH TEGADERM, HEMOVAC HOLDING SUCTION. SURGEON NOTIFIED, ORDER GIVEN TO MAKE PT NPO AT MIDNIGHT AND PT WILL BE ADDED TO TOMORROWS SURGICAL SCHEDULE.
--- NOTE | 2020-06-06 23:40 | NUR ---
PT NOTIFIED THIS NURSE OF EXUDATE FROM INSERTION SITE OF ANTERIOR HEMOVAC. SURGEON NOTIFIED, ORDER OBTAINED TO REMOVE HEMOVAC AND PLACE ABSORBENT DRESSING. PT WAS ASKED TO LIE DOWN DURING INTERVENTION. PT RESTING WITH EYES CLOSED AND EVEN, UNLABORED RESPIRATIONS. PT AWARE OF NPO AT MIDNIGHT STATUS.
[2020-06-07 06:02] LABS: Hematocrit 22.8 % (37.0-53.0); Hemoglobin 7.2 g/dL (13.5-17.5); Mean Corpuscular HGB 30.4 pg (26.0-34.0); Mean Corpuscular HGB Conc 31.6 g/dL (31.5-36.5); Mean Corpuscular Volume 96 fL (80-100); Mean Platelet Volume 9.7 fL (9.1-12.4); Platelet Count 740 K/mm3 (150-400); RDW Coefficient Variation 13.5 % (11.7-14.2); RDW Standard Deviation 46.4 fL (35.1-46.3); Red Blood Cell Count 2.37 M/mm3 (4.30-5.90); White Blood Cell Count 16.81 K/mm3 (4.00-11.30)
--- NOTE | 2020-06-07 06:20 | NUR ---
SHIFT SUMMARY: ANJELICA IS A&OX4. VSS. PT REPORTED INCREASING ANXIETY THIS MORNING. HE STATES THAT HE HAS ADHD. HE HAS BEEN FIXATING ON MINUTE DETAILS AND HAVING DIFFICULTY FOCUSING ON TASKS SUCH LYING DOWN WITH HIS FEET ELEVATED TO IMPROVE HIS EDEMA. HE REPORTS THAT NOT EATING/DRINKING INCREASES HIS FEELINGS OF ANXIETY. HE WAS MADE NPO AT MIDNIGHT. HE REMOVED THE ABSORBENT DRESSING APPLIED TO THE FORMER HEMOVAC SITE AND PART OF THE LONG AQUACELL. AQUACELL REPLACED WITH PURULENT MATTER NOTED FROM THE LOWEST PORTION OF THE INCISION. POWERGLIDE TO KHUSHI HOOKS, UNABLE TO DRAW BACK. HE DID REPORT SUCKING ON A SUGAR-FREE CANDY FOR "ABOUT THREE SECONDS" AT APPORX 0300. HE MADE MULTIPLE REQUESTS FROM STAFF FOR PO INTAKE. A ONE TIME DOSE OF LORAZEPAM WAS GIVEN THIS AM. HE USES HIS CALL LIGHT APPROPRIATELY. HE IS INDEPENDENT IN THE ROOM. CALL LIGHT IN REACH. WILL REPORT TO DAY SHIFT RN.
[2020-06-07 06:22] LABS: Albumin, Blood 1.7 g/dL (3.4-5.0); Anion Gap 9 mmol/L (6-16); Blood Urea Nitrogen 11 mg/dL (8-24); Bun/Creatinine Ratio 16.5 (12.0-20.0); CO2, Blood 26 mmol/L (21-32); Calcium, Blood 8.1 mg/dL (8.5-10.1); Chloride, Blood 96 mmol/L (98-108); Creatinine, Blood 0.67 mg/dL (0.60-1.20); Glomerular Filtration Rate >60 (60-); Glucose, Blood 185 mg/dL (70-99); Phosphorus, Blood 3.2 mg/dL (2.5-4.9); Potassium, Blood 3.5 mmol/L (3.5-5.5); Sodium, Blood 131 mmol/L (136-145)
--- NOTE | 2020-06-07 15:33 | NUR ---
PT TO OR AT THIS TIME
--- NOTE | 2020-06-07 16:51 | NUR ---
Ambulatory in Day Surgery History, Chart, Medications and Allergies reviewed before start of procedure.Lungs clear T/O to Auscultation. Patient confirms NPO status and agrees with scheduled surgery. Pre-Op teaching done. Pt verbalizes understanding.
--- NOTE | 2020-06-07 18:39 | NUR ---
SUMMARY: NO ACUTE CHANGE TODAY. BASELINE TACHYCARDIA, OTHERWISE VSS. PT SEEMED ANXIOUS AND SLEEPY THE MAJORITY OF THE DAY WITHOUT SLEEPING ANY. UP IN ROOM PACING AND RESTLESS ALL DAY EVEN THOUGH ENCOURAGED ELEVATION OF LEGS AND REST FOR R SHOULDER. DRESSING CHANGED TO RIGHT SHOULDER X2 WITH NEW GAUZE, ABD AND FOAM TAPE. PURULENT DRAINAGE FROM INCISION, HEMOVAC INTACT. MEDICATED FOR PAIN PER EMAR. PT AGREEABLE WITH CARE, BUT DID SPECIFICALLY REFUSE ASSESSMENT OF BOTTOCK, BUT REPORTED A "RASH" THAT HE NEEDED GAUZE FOR. PT CURRENTLY IN OR. WILL PASS REPORT TO NOC RN.
[2020-06-07 19:38] LABS: Automated BF RBC Count 0.184 M/mm3 (0-0); RBC Count, Body Fluid 184000 /mm3 (0-0)
[2020-06-07 20:13] LABS: Automated BF WBC Count >200.000 K/mm3 (0-999)
[2020-06-07 20:20] LABS: Appearance, Body Fluid Bloody (Clear); Color, Body Fluid Red (None-Yellow); Total Cell Count, Body Fluid 100
--- NOTE | 2020-06-08 04:26 | NUR ---
SHIFT SUMMARY: PT IS POD#1 FOR HIS 4TH I&D TO R SHOULDER. R SHOULDER SWOLLEN AND RED W/O CHNAGES. WOUND VAC IN PLACE DRAINING A SMALL AMOUNT OF SS FLUID. PAIN BEING MANAGED WITH OXY AND 1MG DILAUDID PER EMAR. PT C/O INSOMNIA. APPEARS TO BE VERY DROWSY BUT UNABLE TO SLEEP. MEDICATED WITH TEMAZEPAM PER EMAR. PT FREQUENTLY REMINDED TO ELEVATED BLE THEY HAVE 3+ PITTING EDEMA. PT PACING AROUND ROOM FREQ AND UNABLE TO SIT STILL. TACHYCARDIC THIS SHIFT, ALL OTHER VS WNL. PT GIVEN MEPILEX DRESSING PER REQUEST FOR RASH ON BUTTOCKS. PT REFUSING ASSESSMENT OF RASH BUT REPORTS IT IS ITCHY AND HE IS SCRATCHING IT UNTIL IT BLEEDS. PT INDEPENDENT IN ROOM. VOIDING AND AMY PO. BM X1 THIS SHIFT.
[2020-06-08 04:53] LABS: BASOPHILS ABSOLUTE AUTO 0.13 K/mm3 (0.00-0.23); BASOPHILS PERCENT AUTO 1 % (0-2); EOSINOPHILS ABSOLUTE AUTO 0.54 K/mm3 (0.00-0.68); EOSINOPHILS PERCENT AUTO 3 % (0-6); Hematocrit 22.1 % (37.0-53.0); Hemoglobin 6.9 g/dL (13.5-17.5); IMMATURE GRAN ABSOLUTE AUTO 0.41 K/mm3 (0.00-0.10); IMMATURE GRAN PERCENT AUTO 3 % (0-1); LYMPHOCYTES ABSOLUTE AUTO 3.05 K/mm3 (0.84-5.20); LYMPHOCYTES PERCENT AUTO 19 % (21-46); MONOCYTES ABSOLUTE AUTO 1.63 K/mm3 (0.16-1.47); MONOCYTES PERCENT AUTO 10 % (4-13); Mean Corpuscular HGB 30.5 pg (26.0-34.0); Mean Corpuscular HGB Conc 31.2 g/dL (31.5-36.5); Mean Corpuscular Volume 98 fL (80-100); Mean Platelet Volume 9.7 fL (9.1-12.4); NEUTROPHILS ABSOLUTE AUTO 10.25 K/mm3 (1.96-9.15); NEUTROPHILS PERCENT AUTO 64 % (41-73); Platelet Count 842 K/mm3 (150-400); RDW Coefficient Variation 13.5 % (11.7-14.2); Red Blood Cell Count 2.26 M/mm3 (4.30-5.90); White Blood Cell Count 16.01 K/mm3 (4.00-11.30)
[2020-06-08 05:27] LABS: Anion Gap 7 mmol/L (6-16); Blood Urea Nitrogen 10 mg/dL (8-24); Bun/Creatinine Ratio 12.9 (12.0-20.0); CO2, Blood 28 mmol/L (21-32); Calcium, Blood 8.2 mg/dL (8.5-10.1); Chloride, Blood 99 mmol/L (98-108); Creatinine, Blood 0.77 mg/dL (0.60-1.20); Glomerular Filtration Rate >60 (60-); Glucose, Blood 137 mg/dL (70-99); Magnesium, Blood 1.8 mg/dL (1.6-2.4); Potassium, Blood 3.9 mmol/L (3.5-5.5); Sodium, Blood 134 mmol/L (136-145)
--- NOTE | 2020-06-08 09:37 | NUR ---
PT VERY ANXIOUS AND PAINFUL THIS MORNING REFUSING BLOOD DRAW FOR TYPE AND SCREEN TO TRANSFUSE BLOOD. PT STATES THAT HE WANTS TO "HAVE BREAKFAST BEFORE ANY MORE POKES". DR. MILES MADE AWARE AND PT GIVEN PAIN MEDICATIONS. PT LATER AGREED TO HAVE LAB COME AT 0930. WILL CTM
--- NOTE | 2020-06-08 14:32 | NUR ---
BLOOD TRANSFUSION COMPLETED AT ABOUT 1405
--- NOTE | 2020-06-08 19:21 | NUR ---
SUMMARY: PT IS POD1 I&D OF R SHOULDER. NO ACUTE CHANGE VSS, A/O. PT CONINTUES TO BE VERY RESTLESS AND ANXIOUS. ENCOURAGED TO SIT DOWN AND ELEVATED LEGS MULTIPLE TIMES. PT WORE SCD'S FOR A SHORT TIME BEFORE REMOVING THEM AND WALKING ABOUT THE ROOM. EDEMA BILAT IS +4, DR. MILES AWARE. 1 UNIT OF BLOOD TRANSFUSED TODAY, PT TOLERATED WELL. SURGICAL SITE WNL, WOUND VAC COMPRESSED, CANESTER CHANGED AND OUTPUT CHARTED. PT HAD CT TODAY, SEE NEW ORDERS. PLAN IS FOR DR. RAMOS AND [employer] PRODUCT CONSULTANT TO SEE PT TOMORROW. PT HAS DENIED SOB, CHEST PAIN. NO ACUTE CONCERNS AT THIS TIME. REPORT GIVEN TO YONAS MOLINA RN.
[2020-06-08 22:09] LABS: U Amphetamine Screen Not Detected; U Barbituate Screen Not Detected; U Benzodiazapine Screen DETECTED; U Buprenorphine Screen Not Detected; U Cannabinoids Screen DETECTED; U Cocaine Screen Not Detected; U Methadone Screen Not Detected; U Methamphetamine Screen Not Detected; U Opiates Screen DETECTED; U Oxycodone Screen DETECTED; U Phencyclidine Screen Not Detected; U Propoxyphene Screen Not Detected
--- NOTE | 2020-06-08 22:20 | NUR ---
ERRATIC BEHAVIOR PT HAS BEEN NOTED TO HAVE A CHANGE IN BEHAVIOR PAST COUPLE DAYS. WENT INTO ROOM AT BEGINNING OF SHIFT, PT WAS MUMBLING TO SELF, "ORGANIZING" HIS LINES, UNABLE TO CONCENTRATE ON THE CONVERSATION, KEPT GETTING UP THEN SITTING BACK DOWN, MOVING EQUIPMENT AROUND ROOM (IV PUMP, WOUND VAC, PAS). CALLED AND SPOKE WITH CHIQUI, URINE WAS SENT FOR TOX SCREEN. TOX CAME BACK WNL FOR WHAT HE'S BEEN GIVEN. MOTHER CALLED THIS EVENING. STATED SHE WAS IN EARLIER TODAY AND BELIEVES HE IS HOARDING HIS NARCOTICS THAT ARE BEING GIVEN. SHE WITNESSED HIM PULL OUT A COUPLE PILLS THAT WERE ON HIS PERSON AND TAKE THEM. MOM IS CONCERNED THAT HE MIGHT BE "STOCKPILING" MEDS THEN CONSUMING THEM ALL AT ONCE. CALLED CH[facility] AGAIN AND RELAYED THIS INFORMATION. NO NEW ORDERS AT THIS TIME BUT WANTS DR. MILES TO BE NOTIFIED IN THE MORNING. SPOKE WITH PRIMARY RN. WILL NEED TO MONITOR PT MORE CLOSELY WHEN ADMINISTERING MEDICATIONS.
--- NOTE | 2020-06-08 23:55 | NUR ---
PILLS HEARD SOME NOISE COMING FROM PT ROOM, WENT IN TO FIND PT IN THE BATHROOM AND LINENS WHERE A MESS AND SOME WHERE ON THE FLOOR. REMOVED OLD LINENS FROM ROOM AND PROVIDED CLEAN LINENS. FOUND AN UNMARKED PILL BOTTLE INSIDE ONE OF THE PILLOW CASES CONTAINING 6.5 WHITE PILLS, SOME GUMMIES OF UNKNOWN ORIGIN, AND 2 NICOTINE GUM. CALLED PHARMACY TO ASSIST W/ IDENTIFYING PILLS, ALL OF WHICH HAD THE NUMBERS SLIGHTLY ERODED MOST LIKELY FROM BEING CHEEKED, 1 ATIVAN 1MG AND 5.5 PERCOCET 10MG, DISPOSED OF PER PHARMACY DIRECTION. ALSO FOUND SUTURE SCISSORS WHICH WERE PLACED IN [employer]ER PER HOSPITAL POLICY FOR USED MEDICAL EQUIPMENT.
[2020-06-09 02:57] LABS: BASOPHILS ABSOLUTE AUTO 0.08 K/mm3 (0.00-0.23); BASOPHILS PERCENT AUTO 1 % (0-2); EOSINOPHILS ABSOLUTE AUTO 0.07 K/mm3 (0.00-0.68); EOSINOPHILS PERCENT AUTO 1 % (0-6); Hematocrit 20.7 % (37.0-53.0); Hemoglobin 6.5 g/dL (13.5-17.5); IMMATURE GRAN PERCENT AUTO 1 % (0-1); LYMPHOCYTES ABSOLUTE AUTO 1.92 K/mm3 (0.84-5.20); LYMPHOCYTES PERCENT AUTO 14 % (21-46); MONOCYTES ABSOLUTE AUTO 1.57 K/mm3 (0.16-1.47); MONOCYTES PERCENT AUTO 11 % (4-13); Mean Corpuscular HGB 29.4 pg (26.0-34.0); Mean Corpuscular HGB Conc 31.4 g/dL (31.5-36.5); Mean Corpuscular Volume 94 fL (80-100); Mean Platelet Volume 9.3 fL (9.1-12.4); NEUTROPHILS ABSOLUTE AUTO 10.31 K/mm3 (1.96-9.15); NEUTROPHILS PERCENT AUTO 73 % (41-73); Platelet Count 762 K/mm3 (150-400); RDW Coefficient Variation 15.9 % (11.7-14.2); RDW Standard Deviation 53.8 fL (35.1-46.3); Red Blood Cell Count 2.21 M/mm3 (4.30-5.90); White Blood Cell Count 14.15 K/mm3 (4.00-11.30)
[2020-06-09 03:19] LABS: Alanine Aminotransfer (ALT/SGP 62 U/L (12-78); Albumin, Blood 1.5 g/dL (3.4-5.0); Albumin/Globulin Ratio 0.3 (0.8-1.8); Alk Phos 140 U/L (50-136); Anion Gap 8 mmol/L (6-16); Aspartate Aminotrans (AST/SGOT 77 U/L (12-37); Bilirubin, Total 0.4 mg/dL (0.1-1.0); Blood Urea Nitrogen 7 mg/dL (8-24); CO2, Blood 26 mmol/L (21-32); Calcium, Blood 7.5 mg/dL (8.5-10.1); Chloride, Blood 99 mmol/L (98-108); Creatinine, Blood 0.64 mg/dL (0.60-1.20); Globulin, Blood 5.3 g/dL (2.2-4.0); Glomerular Filtration Rate >60 (60-); Glucose, Blood 192 mg/dL (70-99); Potassium, Blood 3.7 mmol/L (3.5-5.5); Sodium, Blood 133 mmol/L (136-145); Total Protein, Blood 6.8 g/dL (6.4-8.2)
--- NOTE | 2020-06-09 03:26 | NUR ---
BUTTOCK RASH ASSESSMENT PT ALLOWED ASSESSMENT OF REPORTED "RASH" ON BUTTOCK. SMALL BLISTER/ULCER ON L CHEEK THAT LOOKS TO BE PARTIALLY HEALED. RED AREA W/ SMALL SCATTERED SCABS ON R CHEEK.
--- NOTE | 2020-06-09 03:30 | NUR ---
BEHAVIOR HEARD LOUD NOISE FROM PT ROOM AROUND 0130, PT CALLED ASKING TO SPEAK WITH HIS NURSE. ENTERED ROOM W/ CHARGE AND CLINICAL COORDINATOR STANDING OUTSIDE PT ROOM, ROOM FOUND TO BE IN COMPLETE DISARRAY IF PT HAD BEEN THROWING THINGS AROUND HIS ROOM. PT INQUIRED ABOUT SOME MISSING ITEMS FROM HIS ROOM (SEE NOTE REGARDING PILLS AFTER LINEN CHANGE). TOLD THE PATIENT THAT WE HAD CHANGED HIS LINENS EARLIER SINCE THEY LOOKED LIKE THEY WERE MESSED UP, THAT WE HAD FOUND THE PILLS, AND WE IDENTFIED THEM W/ PHARMACY ASSISTANCE AND THEN DESTROYED THEM PER PHARMACY DIRECTION. PT REPORTED TO BE RECORDING THE ENCOUNTER. PT VOICED CONCERN ABOUT STAFF JUDGING HIM ABOUT BEING A DRUG SEEKER, ASSURED PT THAT WAS NOT THE CASE AND THAT WE JUST NEEDED TO KEEP A GOOD RECORD OF ALL MEDICATIONS THAT HE IS TAKING DURING HIS STAY BECAUSE IT HELPS THE DOCTORS TO KNOW HOW THEY ARE AFFECTING HIS CONDITION AND IF THEY ARE WORKING OR NOT. PT REPORTED HIS INTENTION TO TAKE THE ENTIRE STASH OF MEDS AT ONE TIME BUT JUST TO HELP HIM SLEEP TONIGHT (SEE "PILL" NOTE). PT REPORTS FEELING HOT, ASKED IF WE COULD TAKE HIS TEMPERATURE, TEMP CAME BACK AT 100.3, DECIDED TO GET FULL SET OF VITALS. PT APPEARED TO BE SETTLING DOWN AT THIS POINT AND ASKED FOR SOMETHING TO DRINK AND EAT, PROVIDED PT PER HIS REQUEST OF A LARGE DIET PEPSI AND A HALF SANDWICH. PT STATED HE WOULD LIKE TO EAT AND DRINK AND CONTINUE CONVERSATION WHEN DONE. LEFT ROOM, CLOSED DOOR, UPDATED DR MANCUSO ON SITUATION. APPROXIMATELY 15 MINUTES LATER PT CALLED USING CALL LIGHT, ENTERED ROOM W/ CLINICAL COORDINATOR TO FIND THE PT LAYING ON HIS BED, SANDWICH UNEATEN, PEPSI WAS EMPTY. PT REPORTED NOT FEELING WELL, WAS NOT ABLE TO LAY STILL, WAS REPORTING THAT HE "HURTS ON HIS L SHOULD/CHEST, REQUESTED ICU CHARGE ASSISTANCE, OBTAINED ANOTHER FULL SET OF VITALS, TEMPERATURE INCREASED TO 102.3, NOTIFIED DR MANCUSO AND REQUESTED HER TO COME LAY EYES ON THE PT TO WHICH SHE AGREED. PT BEHARIOR CONTINUED TO BE ERRATIC REPORTING PAIN IN HIS L CHEST AND MOUTH, REPORTED THAT HE HAD "CHIPPED HIS TOOTH EARLIER", PT WAS HITTING HIS CHEST. GAVE ATIVAN 1MG ATIVAN IV PER DR MANCUSO AND TORADOL IV PER ORDER. BLOOD CULTURES ORDERED, PT STATUS ELEVATED TO ICU, TRANSERRED PT TO ICU ROOM 15, REPORT GIVEN TO EVY SESAY JACQUARD LACE WEAVER. ASSISTED W/ TRANSFERRING PT TO ICU W/ ALL HIS POSSESSIONS.
--- NOTE | 2020-06-09 04:03 | NUR ---
PT ARRIVED TO ICU 15 BY BED. PT APPEARS ANXIOUS, LOOKING AROUND ROOM AND MOANING OCCASIONALLY. PT HAD BEEN MED JUST PRIOR TO TRANSFER AND CALMS WHEN UNDISTURBED. PT IS ALSO FLUSHED, SKIN VERY WARM TO TOUCH, MONITOR SHOWS ST, AND RESP RATE 30'S. PT NOTED W 3+ ANKLE EDEMA. PT NOTED W COCCYX WOUND, WHICH IS RED, BUT APPEARS PARTIALLY HEALED. PHOTOS TAKEN. GIVEN PTS EARLIER BEHAVIOUR, BED ALARM PLACED. CALL LIGHT IN REACH.
--- NOTE | 2020-06-09 06:00 | NUR ---
PT HAS RESTED QUIETLY WHEN NOT DISTURBED. LIGHTS IN ROOM LOW FOR LOW STIMULATION ENVIRONMENT. CONT W SL TACHYPNEA AND TACHY, BP STABLE. WAS ASSISTED TO USE URINAL. COOPERATIVE AT THIS TIME, CALL LIGHT IN REACH.
--- NOTE | 2020-06-09 07:55 | NUR ---
ASSUMED CARE BEDSIDE REPORT RECIEVED. PT IS AWAKE, ALERT, AND ORIENTED. PT ANXIOUS AND THRASHING SIDE TO SIDE IN BED. PT IS REDIRECTABLE FOR BREIF PERIODS. SPEAKS NONSENSICALLY AT TIMES. VITAL SIGNS STABLE. PT ON ROOM AIR. RIGHT SHOULDER SWELLING NOTED WITH WOUND VAC IN PLACE. PT WITH BLOODY OUTPUT NOTED IN VAC CANISTER. SEVERE EDEMA NOTED TO BLE'S. POWERGLIDE TO KHUSHI IS C/D/I, SALINE LOCKED. WILL CONTINUE TO MONITOR.
[2020-06-09 11:28] LABS: International Normalized Ratio 1.1; Prothrombin Time Results 11.7 Sec (9.7-11.5)
--- NOTE | 2020-06-09 12:37 | NUR ---
UPDATED PT CONTINUES TO BE RESTLESS AND IRRATIC. PT THRASHES AROUND IN BED AND TANGLES UP LINES/TUBES DESPITE MULTIPLE ATTEMPTS TO UNTANGLE PT FROM LINES/TUBES. DR RILEY AND DR MILES HAVE SEEN PT. PLANS FOR PT TO GET CT THEN CHEST TUBE PLACEMENT THIS AFTERNOON. VITAL SIGNS REMAIN STABLE. WILL CONTINUE TO MONITOR.
[2020-06-09 13:46] LABS: Percent Saturation 7.1 % (20.0-50.0)
[2020-06-09 14:38] LABS: Automated BF RBC Count 0.008 M/mm3 (0-0); Automated BF WBC Count 8.111 K/mm3 (0-999); Body Fluid WBC Count 8111 /mm3 (0-999); RBC Count, Body Fluid 8000 /mm3 (0-0)
[2020-06-09 15:04] LABS: Appearance, Body Fluid Hazy (Clear); Color, Body Fluid Yellow (None-Yellow); Total Cell Count, Body Fluid 100
--- NOTE | 2020-06-09 15:30 | NUR ---
CHEST TUBE PT RETURNED FROM IMAGING AT 1500 WITH NEW CHEST TUBE TO RIGHT LATERAL CHEST IN PLACE. CHEST TUBE SECURED WITH GAUZE, WINDOW DRESSING, AND FOAM TAPE. STOPCOCK TURNED TO OFF POSITION UPON ARRIVAL. DR RILEY AT BEDSIDE TO ASSESS PT. CHEST TUBE CONNECTED TO PLEUREVAC WITH 20 CM WATER SUCTION. NO AIRLEAK NOTED. IMMEDIATE RETURN OF 800 ML SEROUS DRAINAGE NOTED. VITAL SIGNS STABLE. PT REPORTS EASE OF BREATHING. WILL CONTINUE TO MONITOR.
[2020-06-09 15:35] LABS: pH, Body Fluid 7.9
[2020-06-09 15:43] LABS: Albumin, Body Fluid 1.2 g/dL; Glucose, Body Fluid 165 mg/dL; Protein, Body Fluid 4.7 g/dL
[2020-06-09 15:46] LABS: Lactate Dehydrogenase, Body Fl 1312 U/L
--- NOTE | 2020-06-09 18:05 | NUR ---
SHIFT SUMMARY PT CONTINUES TO BE AWAKE, ALERT, AND IMPULSIVE THROUGHOUT THE SHIFT. PT BEHAVIOR IS IRRATIC AND PT TALKS TO SELF AND STAFF CONTINUALLY THROUGHOUT THE DAY. PT IS REDIRECTABLE FOR ONLY BREIF PERIODS OF TIME. PT HAS COMPLAINED OF PAIN "ALL OVER" THROUGHOUT THE SHIFT. PT CONTINUALLY MENTIONS THE HIDDEN PILLS FROM LAST NOC SHIFT AND HIS DISSATISFACTION WITH THE STAFF. PT VITAL SIGNS HAVE REMAINED STABLE. PT ON ROOM AIR. CHEST TUBE TO RIGHT LATERAL CHEST REMAINS IN PLACE AT THIS TIME WITH 20 CM WATER SUCTION. PT WITH 900 ML OF SEROUS DRAINAGE. WOUND VAC REMAINS IN PLACE TO RIGHT SHOULDER WITH CLOUDY BLOODY OUTPUT NOTED. PLAN IS FOR PT TO GO TO OR TOMORROW FOR WOUND WASH OUT WITH DR MAJOR. POWERGLIDES TO KHUSHI SALINE LOCKED. PT USING URINAL TO VOID INDEPENDENTLY. PT HAS REPOSITIONED SELF IN BED INDEPENDENTLY. WILL CONTINUE TO MONITOR AND REPORT OFF TO ONCOMING RN.
--- NOTE | 2020-06-09 21:00 | NUR ---
ASSUMPTION OF CARE PT LYING IN BED, RESTLESS AT TIMES, ORIENTED TO SELF, EVENT, LOCATION, DATE AND FOLLOWING DIRECTIONS. PTS SPEECH PRESSURED AT TIMES, LABILE MOOD, APPEARS HAPPY/EXCITED AND MOTIVATED WITH RECOVERY AT TIMES AND THEN CRYING AT OTHERS, WHEN ASKED ABOUT CRYING PT STS HE DOES NOT WANT TO TALK ABOUT IT. PT FIXATED ON THE TIME, UNDERSTANDS HIS NPO STATUS MIDNIGHT AND MAKES FREQUENT REQUESTS FOR DRINKS/SNACKS STATING HE WANTS TO "GET IT ALL IN" BEFORE HE CAN'T EAT ANYMORE. O2 SATURATIONS> 90% ON RA. CHEST TUBE TO R LATERAL CHEST TO WALL SUCTION WITH SANGUINEOUS OUTPUT, NO AIRLEAK NOTED, NO CREPITOUS AROUND INSERTION SITE AND SURROUNDING TISSUE. MONITOR SHOWS SINUS RHYTHM WITH HR 100-115. PT VOIDS IN URINAL INDEPENDENTLY. CALL LIGHT WITHIN REACH, PT USING APPROPRIATELY.
[2020-06-10 03:54] LABS: BASOPHILS PERCENT AUTO 1 % (0-2); EOSINOPHILS ABSOLUTE AUTO 0.86 K/mm3 (0.00-0.68); EOSINOPHILS PERCENT AUTO 5 % (0-6); Hematocrit 25.9 % (37.0-53.0); Hemoglobin 8.4 g/dL (13.5-17.5); IMMATURE GRAN PERCENT AUTO 2 % (0-1); LYMPHOCYTES ABSOLUTE AUTO 3.14 K/mm3 (0.84-5.20); LYMPHOCYTES PERCENT AUTO 19 % (21-46); MONOCYTES ABSOLUTE AUTO 1.61 K/mm3 (0.16-1.47); MONOCYTES PERCENT AUTO 10 % (4-13); Mean Corpuscular HGB 30.2 pg (26.0-34.0); Mean Corpuscular HGB Conc 32.4 g/dL (31.5-36.5); Mean Corpuscular Volume 93 fL (80-100); Mean Platelet Volume 9.1 fL (9.1-12.4); NEUTROPHILS ABSOLUTE AUTO 10.96 K/mm3 (1.96-9.15); NEUTROPHILS PERCENT AUTO 65 % (41-73); Platelet Count 845 K/mm3 (150-400); RDW Coefficient Variation 15.6 % (11.7-14.2); Red Blood Cell Count 2.78 M/mm3 (4.30-5.90); White Blood Cell Count 16.97 K/mm3 (4.00-11.30)
[2020-06-10 04:11] LABS: Alanine Aminotransfer (ALT/SGP 65 U/L (12-78); Albumin, Blood 1.5 g/dL (3.4-5.0); Albumin/Globulin Ratio 0.2 (0.8-1.8); Alk Phos 140 U/L (50-136); Anion Gap 6 mmol/L (6-16); Aspartate Aminotrans (AST/SGOT 71 U/L (12-37); Bilirubin, Total 0.5 mg/dL (0.1-1.0); Blood Urea Nitrogen 13 mg/dL (8-24); Bun/Creatinine Ratio 18.1 (12.0-20.0); CO2, Blood 29 mmol/L (21-32); Chloride, Blood 99 mmol/L (98-108); Creatinine, Blood 0.72 mg/dL (0.60-1.20); Glomerular Filtration Rate >60 (60-); Glucose, Blood 137 mg/dL (70-99); Potassium, Blood 3.4 mmol/L (3.5-5.5); Sodium, Blood 134 mmol/L (136-145); Total Protein, Blood 7.5 g/dL (6.4-8.2)
--- NOTE | 2020-06-10 06:52 | NUR ---
SHIFT SUMMARY PT AWAKE T/O ENTIRE SHIFT, REMAINS ORIENTED x4, MOOD CONTINUES TO BE VERY LABILE, PT IS IMPULSIVE, GETTING OUT OF BED WITHOUT ASSISTANCE, EXPLAINED TO PT THE NEED TO HAVE STAFF PRESENT WHILE UP IN ROOM, PT HAS DIFFICULTY UNDERSTANDING WHY HE NEEDS ASSISTANCE STATING HE WAS MORE INDEPENDENT IN OTHER UNITS, EXPLAINED TO PT THE NEW CHEST TUBE AND IMPORTANCE OF KEEPING CHEST TUBE IN PLACE AND RISK OF KNOCKING PLEURVAC COLLECTION CONTAINER OVER, PT STS "I'M BEING SAFE", BED ALARM ON. PT VERY CONCERNED OVER HIS PERSONAL BELONGNINGS, LOST CELL PHONE AT ONE POINT AND MADE COMMENTS THAT STAFF MAY HAVE TAKEN IT, CELL PHONE WAS FOUND IN PTS BED. DURING SHIFT, PT REQUESTED MO TYLENOL FOR PAIN, PT STS HE WANTED TO ADMINISTER THE MEDICAION HIMSELF, AGREED TO THIS PLAN BUT LET PT KNOW A STAFF MEMBER WOULD HAVE TO OBSERVE TO ENSURE PROPER PLACEMENT/ADMINISTRATION OF MEDICATION, PT DECLINED MO TYLENOL. PT ACKNOWLEDGES "HOLDING ON" TO MEDICATIONS PREVIOUSLY DURING THIS STAY AND UNDERSTAND THE NEED FOR CLOSE OBSERVATION. CHEST TUBE REMAINS IN PLACE T/O SHIFT, NO AIR LEAK NOTED, SEROUS FLUID DRAINING. MONITOR SHOWS SINUS RHYTHM WITH HR 100-120, HYPERTENSION NOTED. DISCUSSED PAIN/ANXIETY MANAGEMENT WITH PT, PT AGREES TO DISCUSS WITH DOCTOR TODAY. CALL LIGHT WITHIN REACH. REPORT GIVEN TO QUINCY PELAEZ.
--- NOTE | 2020-06-10 08:00 | NUR ---
ASSUMED CARE OF PT. PT IS ANXIOUS AND IRRITABLE. PT REPORTS HIS PAIN LEVEL 10/10 AND "NOTHING IS HELPING" SEE EMAR FOR PRN PAIN MEDICATION. PT ALSO REPORTED THAT HE DID POCKET PILLS THE OTHER DAY TO TAKE THEM ALL AT ONCE FOR "BETTER PAIN CONTROL". INSTRUCTED PT ON CURRENT PAIN CARE MANAGEMENT, WILL NEED REINFORCED. PT CURRENTLY NPO FOR I&D TO R SHOULDER. WOUND VAC IN PLACE W/ CONTINIOUS SUCTION. R PIGTAIL CHEST TUBE IN PLACE, NO CREPITUS OR LEAK NOTED, CONTECTED TO SUCTION AT 20mmHg. REMAINS ON ROOM AIR. SINUS TACH ON THE MONITOR, OTHER VITALS ARE STABLE.
--- NOTE | 2020-06-10 11:06 | NUR ---
TRANSFER OF CARE REPORT GIVEN TO BENIGNO CHARLTON IN PCU. BELONGINGS GATHERED AND TRANSFERRED WITH PT. PT TRANSFERRED VIA BED BY PCT TO PCU 8.
--- NOTE | 2020-06-10 12:26 | NUR ---
PT TRANSFERED TO [facility] VIA [facility]URNY FROM PCU. CHEST TUBE CONNECTED TO PORTABLE SUCTION FOR TRANSPORT. History, Chart, Medications and Allergies reviewed before start of procedure. Lungs clear T/O to Auscultation. Patient confirms NPO status and agrees with scheduled surgery. Pre-Op teaching done. Pt verbalizes understanding.
--- NOTE | 2020-06-10 13:21 | NUR ---
PT IN OR AT THIS TIME FOR I&D
--- NOTE | 2020-06-10 16:17 | NUR ---
AWAITING VANCOMYCIN TO COMPLETE, PT ROXANNE MOVING ABOUT CONSTANTLY
--- NOTE | 2020-06-10 18:49 | NUR ---
SHIFT NOTE PT VERY ANXIOUS CRIES WITHOUT REASON, HE IS MANIC AND BOUNCING BODY AROUND IN BED. PT WENT FOR I&D TODAY, RETURNED WITH WOUND VAC AND TATUM DRAIN. CHEST TUBE TO CONTINUOUS LOW SUCTION WITH ROLLING BUBBLES NOTED IN WATER CHAMBER. PT ARRIVED THIS AFTERNOON FROM ICU. ANTIBIOTICS ARE LATE THEY WERE BEGAN WHEN PT RETURNED FROM THE OR.
[2020-06-11 03:50] LABS: BASOPHILS ABSOLUTE AUTO 0.08 K/mm3 (0.00-0.23); BASOPHILS PERCENT AUTO 1 % (0-2); EOSINOPHILS ABSOLUTE AUTO 0.55 K/mm3 (0.00-0.68); EOSINOPHILS PERCENT AUTO 4 % (0-6); Hemoglobin 7.8 g/dL (13.5-17.5); IMMATURE GRAN ABSOLUTE AUTO 0.24 K/mm3 (0.00-0.10); IMMATURE GRAN PERCENT AUTO 2 % (0-1); LYMPHOCYTES ABSOLUTE AUTO 2.43 K/mm3 (0.84-5.20); LYMPHOCYTES PERCENT AUTO 16 % (21-46); MONOCYTES ABSOLUTE AUTO 1.24 K/mm3 (0.16-1.47); MONOCYTES PERCENT AUTO 8 % (4-13); Mean Corpuscular HGB 29.5 pg (26.0-34.0); Mean Corpuscular HGB Conc 31.2 g/dL (31.5-36.5); Mean Corpuscular Volume 95 fL (80-100); NEUTROPHILS ABSOLUTE AUTO 10.67 K/mm3 (1.96-9.15); NEUTROPHILS PERCENT AUTO 70 % (41-73); Platelet Count 800 K/mm3 (150-400); RDW Coefficient Variation 15.6 % (11.7-14.2); RDW Standard Deviation 53.1 fL (35.1-46.3); Red Blood Cell Count 2.64 M/mm3 (4.30-5.90); White Blood Cell Count 15.21 K/mm3 (4.00-11.30)
[2020-06-11 04:08] LABS: Alanine Aminotransfer (ALT/SGP 68 U/L (12-78); Albumin, Blood 1.5 g/dL (3.4-5.0); Albumin/Globulin Ratio 0.2 (0.8-1.8); Alk Phos 159 U/L (50-136); Anion Gap 6 mmol/L (6-16); Aspartate Aminotrans (AST/SGOT 83 U/L (12-37); Bilirubin, Total 0.5 mg/dL (0.1-1.0); Blood Urea Nitrogen 9 mg/dL (8-24); Bun/Creatinine Ratio 13.6 (12.0-20.0); CO2, Blood 30 mmol/L (21-32); Calcium, Blood 8.2 mg/dL (8.5-10.1); Chloride, Blood 99 mmol/L (98-108); Creatinine, Blood 0.66 mg/dL (0.60-1.20); Globulin, Blood 6.1 g/dL (2.2-4.0); Glomerular Filtration Rate >60 (60-); Glucose, Blood 230 mg/dL (70-99); Potassium, Blood 3.2 mmol/L (3.5-5.5); Sodium, Blood 135 mmol/L (136-145); Total Protein, Blood 7.6 g/dL (6.4-8.2); Vancomycin, Random 10.3 ug/mL
--- NOTE | 2020-06-11 05:34 | NUR ---
SHIFT SUMMARY PT DID NOT REST MOST OF NIGHT. PT IN MANIC PHASE OF BIPOLAR DISORDER. ALERT AND ORIENTED - ABLE TO MAKE NEEDS KNOWN. TELE NSR/SINUS TACH. ROOM AIR - SATS >90%. PT ABLE TO AMBULATE IN ROOM INDEPENDENTLY WITH ALL TUBES AND DRAINS. TATUM PUT OUT 40ML TOTAL. PAIN X3. BP ELEVATED - PT GETTING WORKED UP BY NOT BEING ABLE TO SLEEP, AND BEING ANTSY. TRAZADONE GIVEN - NO RELIEF. VOIDING TO TOILET, NO BM IN SEVERAL DAYS PER PT - MOM AND BISACODYL GIVEN. CALL LIGHT WITHIN REACH, BED IN LOWEST POSITION. WILL CONTINUE TO MONITOR.
--- NOTE | 2020-06-11 07:20 | NUR ---
THIS RN ASSUMED CARE FROM [facility], DURING BEDSIDE REPORT IT IS NOTED THAT PT HAS REMOVED HIS WOUND DRESSINGS AND REDRESSED THEM HE STS "THIS IS THE WAY THAT WORKS FOR ME" PT HAS WRAPPED COBAN AROUND HIS IV TUBING TO MAKE WHAT HE CALLS A HANDLE. PT HAS ALSO REMOVED IS POWERGLIDE DRESSING AND REDRESSED THEN WHICH HE STS "THIS IS HOW IT WORKS FOR ME" THEN GOES ON ABOUT HAVING "BIPOLAR AND ADHD" WHICH HE BLAMES FOR HIS BEHAVIOR REPEATEDLY. ALSO UPON WALKING IN TO THE ROOM IT IS NOTED THAT PT'S WATER SEAL HAS BEEN UNTAPPED FROM THE FLOOR AND IS SITTING ON THE BEDSIDE TABLE AND IS NOT BUBBLING, IT IS IDENTIFIED THAT THE BUBBLE CHAMBER IS NOT BUBBLING THE PT HAS TURNED IT OFF, HE EXCITEDLY SHOWS STAFF THAT HE KNOWS HOW TO TURN THE BUBLING CHAMBER OFF AND ON. PT IS ALSO WOUND UP IN HIS CHST TUBE TUBING, AND IV TUBING WHEN LUIS E AND I ATTEMPT TO FIX THE TANGLED LINES PT BEGINS ARGUING "IT'S NOT A BIG DEAL JUST FIX IT" PT IS REMINDED THAT IF HE WOULD IN FACT STOP TURNING IN CIRLCES THE LINES COULD BE FIXED IN A SHORT TIME. ATTEMPTS TO EDUCATE PT THAT WHAT HE IS DOING IS NOT SAFE FOR HIM PT THEN STS "WELL I'M ABOUT TO RIP ALL OF THIS SHIT OUT AND LEAVE I DON'T HAVE TO STAY IF YOU WON'T WORK WITH ME" PT REMINDED THAT STAFF IS IN FACT TRYING TO "WORK" WITH HIM AND UNDO THE THINGS HE HAS DONE TO HIMSELF IN THE NIGHT PT STS "I WILL RIP THIS SHIT OUT I'M NOT AFRAID TO , I BECAME A MARINE AT 16 PREPARED TO , I USED TO GO FOR WALKS INT HE DIAZ EVERY DAY BEFORE THIS I'M NOT AFRAID" PT ASKED TO PLEASE SIT AND ALLOW US TO UNTANGLE AND MANAGE THE LINES PT THEN THROWS SELF TO BED AND BEGINS SOBBING WILDLY WITHOUT TEAR PRODUCTION. WATER SEAL IS RETURNED TO THE FLOOR, BUBBLING IS RESUMED, IT IS ALSO NOTED THAT PT HAS BEGAN TAPING POPSICLE STICKS TO HIS CHEST TUBE CHAMBER WHICH DO NOT APPEAR TO BE AFFECTING THE ACTION OF BUBBLING CHAMBER. PT IS EDUCATED THAT STAFF IS ONLY ATTEMPTING TO KEEP HIM SAFE AND EDCUATED THAT WHAT HE HAS DONE TO HIMSELF IS NOT SAFE FOR HIM, HE CONTINUES SOBBING AND STS "NO YOU'RE RIGHT"
--- NOTE | 2020-06-11 14:31 | NUR ---
AWAITING LITIUHM FROM PHARMACY AT THIS TIME
--- NOTE | 2020-06-11 14:58 | NUR ---
EARL JESSICA ASSUME CARE ON SURG FLOOR SHE IS AWARE THAT LITHIUM HAS NOT BEEN GIVEN IT HAS NOT ARRIVED FROM PHARMACY
--- NOTE | 2020-06-11 17:02 | NUR ---
Shift summary No acute changes since arrival to room 229. Patient has been cooperative with care since arrival to surgical unit. Patient does appear restless in room and is getting up and moving around the room frequently. Chest tube in place. TATUM drain putting out small amount serosanguinous fluid. Call light within patient reach.
--- NOTE | 2020-06-12 06:16 | NUR ---
SHIFT SUMMARY POD2 I&D R SHOULDER #5, A/O X4, VSS, TOLERATING PO, PASSING FLATUS BUT NO BM YET, BOWEL CARE CONTINUES, PAIN WELL CONTROLLED PER EMAR. PT STILL APPEARS TO BE RESTLESS, FIGITS ALMOST CONTINUOUSLY/PACES, REPORTS TROUBLE SLEEPING BUT APPEARS TO BE DOZING PERIODICALLY WHILE SITTING UP. PT REPORTS HAVING ADHD, SEEMS TO OBSESS OVER HAVING THINGS IN A SPECIFIC WAY TO THE POINT OF WHAT APPEARS TO BE CHAVEZ. DESPITE THIS, PT HAS BEEN COOPERATIVE W/ NURSING STAFF AND ALL CARE PROVIDED T/O SHIFT, HAS BEEN POLITE YET IMPULSIVE, REPORTS BEING ON A NEW PSYCH MEDICATION BUT DOESN'T BELIEVE IT HAS "KICKED IN YET". NO ACUTE EVENTS T/O SHIFT, NO DANGEROUS BEHAVIORAL EVENTS T/O SHIFT. CALL LIGHT IN REACH, WILL CONTINUE TO MONITOR AND REPORT TO ONCOMING DAY RN.
[2020-06-12 09:50] LABS: Vancomycin, Trough 12.2 ug/mL (5.0-10.0)
--- NOTE | 2020-06-12 11:38 | NUR ---
CHEST TUBE TO WATER SEAL AT ABOUT 0715 THIS AM
--- NOTE | 2020-06-12 15:29 | NUR ---
ATTEMPTED TO REACH DR. MITCHELL AT THIS TIME CONCERNING FURTHER ORDERS FOR PT CHEST TUBE. MESSAGE LEFT, WILL AWAIT RETURN CALL.
--- NOTE | 2020-06-12 18:47 | NUR ---
DR. URBINA REMOVED PT CHEST TUBE AT THIS TIME. PT DID NOT TOLERATE WELL, TEARFUL AND PAINFUL FOLLOWING. EASILY DE-ESCULATED AND IS CURRENTLY ON THE PHONE WITH A FRIEND. PLAN TO MEDICATE PER EMAR
--- NOTE | 2020-06-12 19:13 | NUR ---
SUMMARY: PT IS POD2 I&D OF R SHOULDER. NO ACUTE CHANGE TODAY. VSS, A/O. PT CONTINUES TO BE VERY EXPRESIVE, ACTIVE IN ROOM AND HOARDING THINGS. VERY CLEARLY BI POLAR WITH MANIC EPISODES AT TIMES TODAY. PT SURGICAL SITE WNL, DISPITE PT FIGETING WITH LINES/TUBE/DRESSINGS CONSTANTLY. ATTEMPTED TO SUCURE TATUM TO GOWN, BUT PT DID NOT KEEP SAFETY PIN ATTACHED. PT EMPTYING TATUM DRAIN, PT TOLD NOT TO DO SO. ABOUT 50ML SS FLUID DRAINED FROM TATUM THAT THIS RN EMPTIED. PT HAS NOT COMPLAINED OF SOB, CHEST HAS EVEN RISE AND FALL. ABX INFUSED. PT MEDICATED FOR PAIN PER EMAR. NO ACUTE SAFETY CONCERNS AT THIS TIME. REPORT GIVEN TO YONAS MOLINA RN.
--- NOTE | 2020-06-13 04:26 | NUR ---
SHIFT SUMMARY POD3 R SHOULDER I&D #5, A/O X4, VSS, TOLERATING PO, VOIDING WELL, PASSING FLATUS/BM THIS SHIFT. PT CONTINUES TO FIDGET AND MOVE AROUND, SEEMS TO HAVE A HARD TIME SITTING STILL OR IN ONE PLACE FOR VERY LONG. JOEL CAME LOOSE AND WAS DIFFICULT TO REPLACE DUE TO EXCESSIVE MOVEMENT. POWERGLIDE GOT CAUGHT ON SOMETHING PER PT REPORT AND HAD TO BE REPLACE, AGAIN THIS WAS DIFFICULT DUE TO EXCESSIVE MOVEMENT. ALL IN ALL, PT APPEARS TO BE IMPROVING, SOME ANXIETY IS EVIDENT BUT HE REMAINS CALM AND COOPERATIVE W/ ALL NURSING CARE. CALL LIGHT IN REACH, WILL CONTINUE TO MONITOR AND REPORT TO ONCOMING DAY RN.
--- NOTE | 2020-06-13 16:30 | NUR ---
WOUND ASSESSMENT: JOEL FOUND DECOMPRESSED, PT REPORTS TO HAVE BEEN SCRATCHING UNDER ARM AND THE DRESSING STARTED PEELING OFF. THERE APPEARED TO BE A SMALL AMOUNT OF PURULENT DRAINAGE FROM WOUND. DRESSING REMOVED, WOUND CLEANSED AND JOEL REPLACED ONLY TO FIND THAT 10 MINUTES LATER PT HAD "WASHED DOWN HIS HAIR" IN THE BATHROOM SINK AND SOAKED THE DRESSING. DRESSING REMOVED AGAIN AND MORE PURULENT DRAINAGE NOTED. DRY ADHESIVE DRESSING PLACED AND DR. MAJOR NOTIFIED OF WOUND ASSESSMENT. DR. MAJOR IN PT ROOM AT ABOUT 1530, PLAN TO NOT REPLACE JOEL AND LEAVE ADHESIVE DRESSING AT THIS TIME. WILL CTM.
--- NOTE | 2020-06-13 17:37 | NUR ---
SUMMARY: PT IS POD3 I&D R SHOULDER. NO ACUTE CHANGE TODAY, VSS, A/O. SEE PREVIOUS NOTE CONCERNING SURGICAL DRESSING. OTHERWISE SURGICAL SITES WNL, TATUM DRAINED ABOUT 45ML OF SS FLUID. POWERGLIDE IS INFUSING WELL. PT OFFERED WENDI HOSE, WHICH WERE PUT ON AND STAYED ON FOR ABOUT AN HOUR BEFORE PT TOOK OFF. ENCOURAGING ELVATION OF LEGS, BUT PT IS UP IN ROOM WALKING AND PACING MOST OFTEN. PT CONTINUES TO GLADIS RANDOM THINGS INCLUDING MEDICAL SUPPLIES THAT ARE LEFT IN THE ROOM OR HE TAKES ITEMS FROM THE TRASH. TRASH EMPTIED SERVERAL TIMES TODAY TO PREVENT. PT IS VERY SECRETIVE. NO COMPLAINT OF SOB, REPORTS "BREATHING IS EASIER". CONTINUES TO REFUSE ASSESMENT OF "RASH" ON BUTTOCK. NO ACUTE SAFETY CONCERNS, WILL REPORT TO YONAS RN.
--- NOTE | 2020-06-14 00:14 | NUR ---
BEHAVIOR DURING SHIFT ASSESSMENT PT POWERGLIDE WAS NOT ABLE TO FLUSH. I REQUESTED A NEW ONE BE PLACED, WHEN RN CAME TO ASSESS IT, PT WAS FOUND TO BE VOIDING IN THE CORNER OF HIS ROOM ON THE FLOOR, PT REFUSED TO ALLOW ASSESSMENT OF IV ACCESS OR TO ALLOW NEW IV ACCESS, STATED "DON'T TOUCH ME". PT LEFT ALONE TO ALLOW HIM TO DE-ESCALATE, PT CONTINUES TO REFUSE MEDS. WILL TRY AGAIN TO ESTABLISH IV ACCESS TO CONTINUE IV ABX PER ORDER, WILL NOTIFY PHARMACY DUE TO AFFECTED VANCO ADMIN DELAY. WILL CONTINUE TO MONITOR PT CONDITION AND ENCOURAGE COMPLIANCE W/ TX.
[2020-06-14 04:18] LABS: Hematocrit 26.4 % (37.0-53.0); Hemoglobin 8.1 g/dL (13.5-17.5); Mean Corpuscular HGB Conc 30.7 g/dL (31.5-36.5); Mean Corpuscular Volume 98 fL (80-100); Mean Platelet Volume 9.4 fL (9.1-12.4); Platelet Count 741 K/mm3 (150-400); RDW Coefficient Variation 15.1 % (11.7-14.2); RDW Standard Deviation 52.9 fL (35.1-46.3); White Blood Cell Count 16.89 K/mm3 (4.00-11.30)
[2020-06-14 04:39] LABS: Anion Gap 4 mmol/L (6-16); Blood Urea Nitrogen 13 mg/dL (8-24); Bun/Creatinine Ratio 16.9 (12.0-20.0); CO2, Blood 31 mmol/L (21-32); Calcium, Blood 9.5 mg/dL (8.5-10.1); Chloride, Blood 101 mmol/L (98-108); Creatinine, Blood 0.77 mg/dL (0.60-1.20); Glomerular Filtration Rate >60 (60-); Glucose, Blood 309 mg/dL (70-99); Potassium, Blood 3.9 mmol/L (3.5-5.5); Sodium, Blood 136 mmol/L (136-145)
--- NOTE | 2020-06-14 06:43 | NUR ---
SHIFT SUMMARY POD4 I&D #5 R SHOULDER, A/O X4, VSS, TOLERATING PO, VOIDING WELL, PASSING FLATUS. PT BECAME UPSET AND PULLED POWERGLIDE THEN REFUSED NURSING STAFF TO ASSESS PATENCY, CONTINUED TO REFUSE CARE FROM START OF SHIFT TILL AROUND 329, MISSED 2 DOSES OF ABX (1 ZOSYN, 1 VANCO), PHARMACY UPDATED TO ADJUST DOSING/TROUGH, PT HAS BEEN TOLERATING CARE SINCE 329, LOW GRADE FEVER NOTED DURING 399 VITALS, TYLENOL GIVEN, NEW IV STARTED, ABX RESUMED. SURGICAL GLOVE FELL OUT OF PT POCKET, FOUND ZOSYN GLASS BOTTLE IN IT ALONG W/ A SMALL BAG OF MJ, NOTIFIED SECURITY AND DISPOSED OF IT PER THEIR DIRECTION. PT CALM SINCE 399, EDUCATED ON IMPORTANCE OF ABX TX. CALL LIGHT IN REACH, WILL CONTINUE TO MONITOR AND REPORT TO ONCOMING DAY RN.
--- NOTE | 2020-06-14 10:43 | NUR ---
PT ASKED FOR NEOSPORIN TO PLACE ON HIS BUTT. WHEN THIS NURSE ASKED WHAT FOR HE STATED HE HAS HAD A SORE IN HIS GLUTEAL CLEAVAGE FOR QUITE SOME TIME AND HE HAS BEEN TRYING TO FIX. HE TOLD ME THAT HE HAS NOT SHOWN ANYONE THIS AND DID NOT WANT TO. HE WAS WILLING TO SHOW ME. WOUND WAS ERRYTHEMOUS WITH FLAKY SKIN JUST BELOW COCCYX. NO OPEN SPOTS NOTED. WOUND WAS DRY. PT WAS NOT WILLING TO ALLOW PHOTOGRAPHY. PROVIDED MEPILEX FOR PATIENT TO HELP HIM KEEP PRESSURE OF THE SITE. EDUCATED HIM ON IMPORTANCE OF STAYING OFF THE SITE.
--- NOTE | 2020-06-14 14:39 | NUR ---
at 1230 pt called this rn into room, he had turned off his IV AND DEMANDED THIS RN REMOVE HIS IV IT WAS TO PAINFUL TO CONTINUE. THE PATIENT WAS BEGINNING TO ESCALATE AND HAD SPILLED HIS LUNCH TRAY ON THE GROUND. AFTER REMOVING HIS IV THE PATIENT BEGAN CRYING WHILE SITTING IN HIS CHAIR. THIS RN TALKED TO HIM FOR 10 MINUTES AND THE PATIENT WAS ABLE TO CALM DOWN. HE REFUSED A NEW IV ATTEMPT AT THIS TIME. EDUCATED PT ON NEED FOR HIS ABX BUT HE STATED "I JUST CANT HANDLE IT RIGHT NOW."
--- NOTE | 2020-06-14 14:44 | NUR ---
AT 1330 THE PATIENT TOOK THE DRESSINGS OFF HIS SHOULDER AND CLEANED THE AREA WITH HAND LOAN ASSISTANT. ANOTHER RN HAD THE PATIENT WASH HIS SHOULDER WITH SOAP AND WATER TO REMOVE THE LOAN ASSISTANT. THIS RN APPLIED A NEW MEDIPORE TO THE SHOULDER. CURRENTLY CDI. PT STATED "I WANT TO BE PROACTIVE IN MY CARE SO I CAN DISCHARGE SOONER."
--- NOTE | 2020-06-14 19:30 | NUR ---
SHIFT SUMMARY POD 4 I&D R SHOULDER. AA0X4, PT HAS BEEN HAVING MINIMAL PAIN. PT AMBULATORY TODAY, SLIGHTLY UNSTEADY ON FEET, REFUSES ASSISTANCE, IS ADAMANT ON BEING IND IN ROOM. PT HAS BEEN HAVING TWITCHES T/O SHIFT. REPORTS THEY STARTED NOT LONG AGO. PT EMPTIES OWN TATUM DRAIN, ASKED PT TO ALLOW US TOO DRAIN FOR HIM FOR CHARTING, CONTINUED TO DRAIN ON HIS OWN. NEW IV PLACED TODAY. PT VERY ANXIOUS T/O SHIFT. TOLERATING PO WELL.
--- NOTE | 2020-06-15 05:48 | NUR ---
SHIFT SUMMARY: ANJELICA IS A&O X 4 WITH FORGETFULNESS NOTED. WHEN HE AWOKE DURING THE NIGHT, HE DID NOT REMEMBER HIS NPO STATUS AND REQUESTED FOOD FROM STAFF. HE STATES THAT HE ATE AN ICE CREAM AND DRANK A MILK THAT HE TOOK FROM A TRAY IN THE HALLWAY EARLIER IN THE DAY. HE STATES THAT HE CONSUMED THOSE ITEMS WHILE WAITING FOR STAFF TO RETURN WITH THE FOOD HE HAD REQUESTED. THAT WAS AT 0200 THIS MORNING. OTHERWISE, HE HAS BEEN NPO TO THE STAFF'S BEST KNOWLEDGE. RISKS OF GOING UNDER ANESTHESIA WITH FOOD/DRINK ON HIS STOMACH WERE DISCUSSED. HE HAS BEEN UP WALKING THE HALLS INTERMITTENTLY THIS SHIFT. HE STATES THAT HE LIKES TO WALK AND USED TO WALK MULTIPLE MILES PER DAY PRIOR TO BEING ADMITTED TO THE HOSPITAL. HE HAS BEEN ANXIOUS AND OCCASIONALLY AGITATED THIS SHIFT. HE CONTINUES TO ATTEMPT TO CARE FOR HIMSELF IN DETRIMENTAL WAYS, SUCH USING A SANITIZING WIPE A MOUTH MOISTURIZER. HE WAS, AGAIN, ENCOURAGED TO MAKE HIS NEEDS KNOWN TO STAFF FOR APPROPRIATE CARE AND SAFETY. HE VERBALIZED UNDERSTANDING. HE PEELED LARGE AMOUNTS OF SKIN OFF OF THE SOLES OF HIS FEET AND APPLIED CALAZYME LOTION TO THEM, IN SPITE OF BEING WARNED ABOUT PROPER FOOT CARE IN PERSONS WITH DIABETES. HE DID ACQUIESCE TO WEARING NON-SLIP SOCKS. HE SHOWED THIS NURSE THAT HE HIDES ITEMS UNDERNEATH HIS PILLOWS AND STATES THAT IF HE HAS "CONTRABAND" HE HIDES IT UNDERNEATH HIS MATTRESS. NO ITEMS WERE VISUALIZED AT THIS TIME. HE STATES THAT HE WANTS TO HEAL AND KNOWS THAT HE HAS TO BE HONEST AND UP-FRONT WITH STAFF SO THAT THEY ARE ABLE TO HELP HIM. HE WAS ALSO ENCOURAGED TO LIE DOWN AND ELEVATE HIS FEET D/T SIGNIFICANT SWELLING. HE IS LYING IN BED WITH HIS CALL LIGHT IN REACH. WILL REPORT TO DAY SHIFT RN.
--- NOTE | 2020-06-15 07:57 | NUR ---
PT REFUSED PART OF ASSESSMENT AT THIS TIME. PT REPORTS WANTING TO BUILD TRUST BEFORE RN ASSESSES PT'S "SORE ON BOTTOM" OR JONAS AREA. PT HAS BANDAIDS TO R SHOULDER. PT REPORTS WILL NOT HAVE ANY TO DRINK OR EAT. PT REPORTS WILL NOT CHANGE DRESSING OR ATTEMPT TO CLEAN SHOULDER. PT HAS TATUM TO RIGHT SHOULDER.
--- NOTE | 2020-06-15 08:28 | NUR ---
DR MCCAIN HERE TO SEE PT, DISCUSSED MEDICATIONS TO GIVE/HOLD.
--- NOTE | 2020-06-15 11:46 | NUR ---
PT REPORTS BEEN NPO. PT OUT OF ROOM FOR PROCEDURE WITH OTHER STAFF WHO REPORT WILL CHECK CBG AND GIVE NOON DOSE OF ABX WHICH WAS SENT WITH THEM.
--- NOTE | 2020-06-15 12:02 | NUR ---
Patient up to Ambulate independently. Gait steady. History, Chart, Medications and Allergies reviewed before start of procedure.Lungs clear T/O to Auscultation. Patient confirms NPO status and agrees with scheduled surgery.PT UP TO BR PRIOR TO TRANSFER TO [facility]. PT PROVIDED EMOTIONAL SUPPORT AND RELAXING ENVIRONMENT FOR ANXIETY.
--- NOTE | 2020-06-15 12:37 | NUR ---
PT SPENT A SIGNIFICANT AMOUNT OF TIME IN THE BATHROOM WHILE WAITING FOR DR CORONADO TO ARRIVE. PT CAME OUT OF THE BATHROOM STATING HE HAD A SMALL HARD STOOL. PT ANXIETY DECREASED AND PT FELL ASLEEP SOON CONSENT WAS SIGNED WITH DR ZEPEDA. HELD VERSED DUE TO INCREASE IN DROWSINESS. DR BROWNLEE AWARE. STARTED UNASYN PER ORDER.
--- NOTE | 2020-06-15 13:16 | NUR ---
06/15/20 1316 Adalid Fleming PATIENT ON SCHEDULED ANTIBIOTICS. PATIENT ARRIVED TO OR WITH LUCRETIA DRAIN IN RIGHT UPPER ARM-REMOVED BY DR. HUBER PRIOR TO PREP.
--- NOTE | 2020-06-15 15:45 | NUR ---
PT RECENTLY BACK FROM HAVING PROCEDURE. PT A/O. PT WITH TALKING FAST WITH INCREASED AGITATION AT TIMES, OTHER TIMES JUST TALKING FAST. PT HAS DRESSING TO RIGHT SHOULDER. TATUM IN PLACE.
--- NOTE | 2020-06-15 16:59 | NUR ---
WHILE HELPING GEOVANNA HUERTA RN IN PACU WITH PATIENT CARE I FOUND THE METAL TRAY THAT BELONGS IN SDS BATHROOM WRAPPED IN A PAPER TOWEL UP AGAINST LEFT CALF MUSCLE TUCKED UNDER PAJAMA LEG UNDER PAS. EVEN SKIN BLE WHERE BOTH VERY EDEMATOUS PRIOR TO SURGERY THEIR WAS NO FURTHER SKIN BREAKDOWN NOTED IN LLE. FOUND SOME POWDER RESIDUE ON METAL TRAY. TALK TO DR CORONADO, KEM, AND SECURITY REGARDING FINDINGS. TOX SCREEN ORDERED ROOM LOOKED OVER FOR SIGNS OF RECREATIONAL DRUGS.
[2020-06-15 17:02] LABS: U Amphetamine Screen Not Detected; U Methamphetamine Screen Not Detected
[2020-06-15 17:03] LABS: U Barbituate Screen Not Detected; U Benzodiazapine Screen DETECTED; U Buprenorphine Screen DETECTED; U Cannabinoids Screen DETECTED; U Cocaine Screen Not Detected; U Methadone Screen Not Detected; U Opiates Screen Not Detected; U Oxycodone Screen Not Detected; U Phencyclidine Screen Not Detected; U Propoxyphene Screen Not Detected
--- NOTE | 2020-06-15 18:00 | NUR ---
PT BEEN MEDICATED PER HIS REQ WITH BENEDRY EARLIER TODAY. PT MORE CALM AT THIS TIME ALTHOUGH HE STILL TALKS FAST BUT CONT TO APPEAR MORE CALM AT THIS TIME. PT ATE DINNER WELL AND IS DRINKING WATER AND DIET PEPSI WELL.
--- NOTE | 2020-06-15 18:31 | NUR ---
PT WENT FOR LONG WALK IN HALLWAY WITH STEADY GAIT AND IS BACK TO ROOM. PT TALKATIVE BUT CALM.
--- NOTE | 2020-06-15 18:48 | NUR ---
PT CALM AT THIS TIME. DISCUSSED PT'S STATUS AFTER SURGERY WITH DR MCCAIN. DISCUSSED ORDERS, SEE ORDERS.
--- NOTE | 2020-06-15 23:55 | NUR ---
PATIENT WENT ON A LONG WALK DOWN THE HALLWAY. HE HAD A STEADY GAIT. HE WAS TALKATIVE WHEN HE CAME BACK. CALL LIGHT WITHIN REACH.
--- NOTE | 2020-06-16 04:00 | NUR ---
SHIFT SUMMARY: POD 1 I&D #6 ON RIGHT SHOULDER PATIENT IS ALERT AND ORIENTED X4. VS ARE WNL ON RA. HE IS TOLERATING PO INTAKE AND IS VOIDING. PAIN HAS BEEN CONTROLLED WITH IV DILAUDID AND PO ATIVAN. PATIENT HAS BEEN WALKING DOWN THE HALLS TWICE TONIGHT WITH A STEADY GAIT. DURING WHICH ON THE SECOND TIME HE WALKED THE HALLS HE SEEMED MORE UPSET THAN BEFORE. PATIENT WAS GIVEN FOOD AND PO ATIVAN WHICH SEEMED TO HAVE CALMED HIM DOWN. TATUM DRAIN HAS SANGUINEOUS FLUID IN BULB. BULB IS COMPRESSED AND PATIENT HAS BEEN "EMPTYING IT OUT MYSELF SINCE I KNOW HOW TO". HE HAS BEEN RECIEVING IV ABX. HE CALLS APPROPRIATELY AND WILL WALK TO THE NURSES STATION IF CALL LIGHT IS NOT ANSWERED QUICK ENOUGH. HE DENIES ANY NUMBNESS OR TINGLING. HE IS ABLE TO WIGGLE FINGERS AND TOES. CALL LIGHT WITHIN REACH. THE PLAN IS TO CONTINUE IV ABX AND TO ENCOURAGE FLUIDS.
--- NOTE | 2020-06-16 04:57 | NUR ---
CAME IN THE ROOM TO DO HOURLY ROUNDING ON PATIENT. PATIENT IS LAYING ON BED WITH TATUM BULB IN ONE HAND AND THE TATUM TUBING IN THE OTHER. PATIENT REPORTED "I WAS TRYING TO TIDY UP THE BED AND THIS HAPPENED". NO BLOOD ON THE BED OR ON PATIENT. PATIENT WAS VERY TEARFUL AND SEEMED FRUSTRATED. HE REPORTED "I WANT TO PACK UP AND GO HOME ALREADY". REDIRECTED EMOTIONS TO A HAPPIER TOPIC AND PATIENT SEEMED TO RESPOND IN A HAPPIER MOOD. THIS NURSE WRAPPED THE TATUM TIP WITH COBAN AND THEN COILED THE TATUM TUBING ON HIS ARM AND ALSO WRAPPED IN COBAN TO STAY OUT OF PATIENT'S WAY. DR. CORONADO HAS BEEN NOTIFIED. CALL LIGHT IS WITHIN REACH.
--- NOTE | 2020-06-16 11:59 | NUR ---
Patient is walking in his room and highly energetic. Patient tells me about his time in the [employer], his many years of drug dealing and abuse and the family unit complications. Patient talks about his medical history and the plan of care moving forward. Patient shares about the things that inspire him which include music, art and mushrooms. Patient explains about his PTSD and anxiety. Patient opens up about his diminshed sense of relatedness and struggle to find meaning. I normalize patient's experience, explore sources of meaning and connection and provide therapeutic listening and spiritual guidance. Patient responds well and shows signs of being encouraged and having increased resolve. I will continue to assist patient in moving in a healthy direction in his relationship to himself, his family and his future.
--- NOTE | 2020-06-16 16:17 | NUR ---
AT APPROX 1345 ROSA HUMPHREY REPORTED TO THIS RN THAT PT'S TATUM DRAIN NOT COMPRESSING AND THE PT HAD BEEN SEEN FIGETING WITH THE DRAIN. THIS IS THE SECOND TIME THAT TATUM DRAIN ASSESSED, DRAIN PREVIOUSLY REDRESSED WITH DRAIN SPONGE EARLIER THIS MORNING DUE TO DRESSING FALLING OFF BECAUSE OF THE AMOUNT OF PT MOVEMENT. UPON ASSESSMENT AT 1345, BLUB DOES NOT COMPRESS AND DRAIN TUBING APPEARS TO HAVE COME OUT OF WOUND SLIGHTLY. THIS RN CALLED BENIGNO PATTEN INTO ROOM AT THIS TIME TO ALSO ASSESS. TATUM DRAIN THEN REMOVED AND SUTURE CUT, SMALL AMT OF SS DRAINAGE NOTED. DR. CORONADO MADE AWEAR. PT EDUCATED ON THE IMPORTANCE OF NOT TOUCHING HIS WOUNDS/DRAINS. WILL CTM.
--- NOTE | 2020-06-16 18:34 | NUR ---
SUMMARY: PT IS POD1 I&D OF R SHOULDER. PT A/O, DROWSY AT TIMES TODAY AND SEEMED TO FIGHT SLEEP. VSS. PT MUCH LESS HYPERACTIVE TODAY THAN WHEN THIS RN LAST TOOK CARE OF PT. PT AGREEABLE AND KIND, CONTINUES TO HAVE SPASTIC/OCD MOMENTS. SURGICAL SITES WNL AT THIS TIME, SEE PREVIOUS NOTE. PT MEDICATED FOR PAIN AND ANXIETY PER EMAR. NO ACUET SAFETY CONCERNS, WILL REPORT TO NOC RN.
--- NOTE | 2020-06-16 21:15 | NUR ---
PT SPOKE TO MOM VIA PHONE CALL AND VOICED HIS FRUSTRATION WITH THE CONFRONTATION HE STATES HAPPENED WITH HIS SURGEON TODAY. HE STATES THAT HE FELT IF HE WAS ACCUSED OF REMOVING HIS DRAIN WHEN HE HAD NOT. HE STATED THAT HE WAS DOING WHAT HE THOUGHT WAS THE RIGHT CARE FOR THE DRAIN SPOT. NURSING REITERATED NEED FOR PT NOT TO TOUCH HIS WOUNDS WHILE HE IS IN THE HOSPITAL, AND ALLOW NURSING TO CARE FOR IT. HE THEN BACKTRACKS AND STATES THAT HE HAS NOT TOUCHED HIS WOUNDS OR DRAINS AT ALL. APPEARS MANIC AND IS CLEANING HIS ROOM, HE STATES THAT CLUTTER IN HIS ROOM IS NOT ACCEPTABLE TO HIM. NURSING OFFERED TO ASSIST WITH CLEANING, HE REFUSED. DENIES PAIN, DSCOMFORT, OR FURTHER NEEDS AT THIS TIME. SAFETY MEASURES IN PLACE. WILL CONTINUE TO MONITOR.
--- NOTE | 2020-06-16 21:42 | NUR ---
AMBULATING IN HALLWAY ATTEMPTING TO HAVE 3RD BM OF THE DAY, STATES THAT HE IS FEELING THE URGE TO HAVE ONE. HAD C/O PAIN TO RIGHT SHOULDER AND ASKED FOR DILAUDID. WILL MEDICATE WHEN RETURNS TO ROOM. SAFETY MEASURES IN PLACE. WILL CONTINUE TO MONITOR.
--- NOTE | 2020-06-16 21:53 | NUR ---
RETURNED TO ROOM AFTER AMBULATION. MEDICATED FOR PAIN IN RIGHT SHOULDER OF 01/28. INSTRUCTED TO REST AT THIS TIME. DENIES FURTHER NEEDS OR WANTS AT THIS TIME. SAFETY MEASURES IN PLACE. WILL CONTINUE TO MONITOR.
--- NOTE | 2020-06-17 04:16 | NUR ---
UNSUCCESSFULLY ATTEMPTED TO DRAW AM LABS FROM [facility]. CONTACTED LAB FOR DRAW. SAFETY MEASURES IN PLACE. WILL CONTINUE TO MONITOR.
[2020-06-17 04:43] LABS: Hematocrit 26.1 % (37.0-53.0); Mean Corpuscular HGB Conc 30.7 g/dL (31.5-36.5); Mean Corpuscular Volume 98 fL (80-100); Mean Platelet Volume 9.3 fL (9.1-12.4); Platelet Count 642 K/mm3 (150-400); RDW Coefficient Variation 15.3 % (11.7-14.2); RDW Standard Deviation 54.2 fL (35.1-46.3); Red Blood Cell Count 2.67 M/mm3 (4.30-5.90); White Blood Cell Count 15.96 K/mm3 (4.00-11.30)
[2020-06-17 05:03] LABS: Anion Gap 3 mmol/L (6-16); Blood Urea Nitrogen 20 mg/dL (8-24); Bun/Creatinine Ratio 25.3 (12.0-20.0); CO2, Blood 32 mmol/L (21-32); Chloride, Blood 102 mmol/L (98-108); Creatinine, Blood 0.79 mg/dL (0.60-1.20); Glomerular Filtration Rate >60 (60-); Glucose, Blood 169 mg/dL (70-99); Potassium, Blood 3.7 mmol/L (3.5-5.5); Sodium, Blood 137 mmol/L (136-145)
--- NOTE | 2020-06-17 05:49 | NUR ---
SHIFT SUMMARY LYING IN SEMI FOWLERS WITH EYES OPEN AND BOTTOM UP ON PILLOWS, HAS RESTED OFF AND ON. HAS BEEN COOPERATIVE WITH CARE. CONTINUE TO BE RESTLESS AT TIMES, CLEANING ROOM TO HIS SATISFACTION WHILE REFUSING ASSISTANCE FROM NURSING. MEDICATED PRN FOR PAIN, ANXIETY, AND CONSTIPATION PER HIS REQUEST. LEFT FA 18G POWERGLIDE REMAINS PATENT, BUT UNABLE TO GET BLOOD RETURN OR DRAW AM LABS. AMBULATES IN HALLWAY TO KEEP SELF BUSY AFTER TRYING TO REST. NURSING HAS OBSERVED DRESSINGS AFTER CLEANING AND APPLYING A MEPILEX TO RIGHT UPPER ARM DRAIN INSERTION SITE. PT DOESN'T APPEAR TO HAVE PICKED ON THEM OR PULLED THEM OFF. DENIES FURTHER NEEDS OR WANTS AFTER BEING GIVEN MULTIPLE SNACK THROUGHOUT SHIFT. SAFETY MEAURES IN PLACE. WILL CONTINUE TO MONITOR UNTIL HAND OFF TO ONCOMING JUAN J USING SBAR.
--- NOTE | 2020-06-17 09:14 | NUR ---
UPON PT ASSESSMENT THIS MORNING, PT IS STANDING AND HOLDING A DIRTY MEPILEX DRESSING THAT PT STATES CAME FROM HIS SURGICAL SITE. PT STATED THAT "IT WAS TIME FOR IT TO COME OFF". PT TOLD NOT TO TOUCH HIS DRESSINGS/WOUNDS. NEW MEPILEX PLACED AT OLD TATUM DRAIN SITE AND WRAPPED WITH SERENA AT 0805.
[2020-06-17 10:10] LABS: HCV LOG10 6.604 (.); HEPATITIS C GENOTYPE 3 (.); HEPATITIS C QUANTITATION 4020000 IU/mL (.)
--- NOTE | 2020-06-17 17:26 | NUR ---
SUMMARY: NO ACUTE CHANGE. VSS, PT DROWSY TODAY, ORIENTED. SURGICAL SITES WNL AT THIS TIME. DRESSING TO R SHOULDER OLD TATUM SITE CHANGED X2 WITH SCANT AMT OF SS DRAINAGE. PT MEDICATED PER EMAR FOR PAIN/ANXIETY. PT WAS REPORTED TO HAVE WALKED OVER TO ER THIS MORNING. PT SAID "WANTED TO SEE IF I COULD MAKE IT THAT FAR IN CASE I WANT TO LEAVE". PT ENCOURAGED NOT TO GO FOR LONG WALKS AND REMINDED TO ELEVATE LEGS. PT DOES NOT FOLLOW DIRECTIONS. NO ACUTE SAFETY CONCERNS AT THIS TIME.
--- NOTE | 2020-06-17 18:33 | NUR ---
ENTERED ROOM FOR HOURLY ROUNDS AT ABOUT 1800 AND PT HAD PUT TAPE OVER A SCAB FROM AN OLD (HEALED) DRAIN SITE. AFTER REMOVING TAPE THIS RN FOUND THAT THE SCAB HAD BEEN SCRATCHED OPEN, SCANT AMT OF SS DRAINAGE PRESENT. SITE CLEANSED AND MEPILEX DRESSING PLACED. PT NOW HAS 2 MEPILEX DRESSINGS TO R SHOULDER. PT AGAIN TOLD NOT TO PICK AT WOUNDS.
--- NOTE | 2020-06-18 01:00 | NUR ---
ENTERED PT ROOM TO ADDRESS IV PUMP BEEPING, FOUND PT SITTING ON THE FLOOR, ASKED IF HE WAS ALRIGHT. PT STATED HE WAS OK, I ASKED IF HE FELL, PT STATED "NO". DISCONNECTED IV LINE DUE TO ABX INFUSION AND FLUSH COMPLETE, PT REMAINED SEATED WHILE GENTLY ROCKING HIMSELF. I ASKED IF HE WANTED TO GET UP AND I WOULD HELP HIM BACK TO BED, HE SAID HE DIDN'T WANT TO GET UP JUST YET. PT REMAINED IN PLACE FOR ABOUT 2 MINUTES WHILE I OBSERVED FROM JUST OUTSIDE THE ROOM BEFORE GETTING UP AND ASKING FOR SOMETHING TO DRINK. COFFEE AND DIET PEPSI PROVIDED PER REQUEST. WILL CONTINUE TO MONITOR AND UPDATE IF SITUATION CHANGES.
--- NOTE | 2020-06-18 03:25 | NUR ---
CRYING PT FOUND SITTING IN A CHAIR IN THE DOORWAY TO HIS ROOM CRYING. WHEN ASKED WHAT WAS WRONG PT STATED "ITS EMBARRASING WHEN I KEEP PISSING MYSELF". TALKED W/ PT TO COMFORT AND CALM HIM DOWN, OFFERED TO BRING HIM SOMETHING, REQUESTED SOME JUICE. PT MOOD SEEMED TO IMPROVE A LITTLE. PT REPORTED THAT HE WAS GOING TO "TAKE A LAP" AND ASKED IF HE COULD GET SOMETHING TO HELP HIM SLEEP WHEN HE GOT BACK. PT APPEARS PRETTY DROWSY. WILL CONTINUE TO MONITOR SITUATION.
--- NOTE | 2020-06-18 05:08 | NUR ---
SHIFT SUMMARY S/P MULTIPLE I&D R SHOULDER, A/O X4, VSS, PT REMOVED SURGICAL DRESSING STATING "IT WAS TIME FOR IT TO COME OFF". PACES IN ROOM, WANDERS THE HALLS. CONTAMINATED DEPARTMENT PANTRY, WAS TOLD HE HAS TO ASK FOR THINGS PATIENTS ARE NOT ALLOWED TO HELP THEMSELVES. WAS HAVING AN EMOTIONAL EPISODE STATING HE WAS EMBARRASED ABOUT VOIDING IN HIS PANTS. IS TALKING ABOUT GOING HOME IN THE MORNING, DISCUSSED AT LEAST TALKING TO THE DR ABOUT CONTINUE ABX TX OUTPATIENT BEFORE LEAVING. CALL LIGHT IN REACH, WILL CONTINUE TO MONITOR AND REPORT TO ONCOMING DAY RN.
--- NOTE | 2020-06-18 07:30 | NUR ---
0710 PT IN [facility], STATES HE IS GOING FOR A WALK AND WILL CALL WHEN HE RETURNS. PT EDUCATED TO STAY ON SURGICAL UNIT ON SECOND FLOOR
--- NOTE | 2020-06-18 09:41 | NUR ---
0740 RETURNED TO ROOM, PT PICKING UP TRASH AND DIRTY LINENS ON FLOOR. PT APOLOGIZING FOR URINATING ON FLOOR AND ENTERING PANTRY AND REMOVING FOOD DURING THE PREVIOS SHIFT
--- NOTE | 2020-06-18 14:24 | NUR ---
PT HAS TATUM DRAIN, A FLASHLIGHT HE TELLS ME HE URINATED IN, A GAUZE DRESSING HE HAS LAID OUT ON A CHUX ON HIS BED. PT TELLS ME HE IS MAKING A SCRAPBOOK AND HE IS TAKING IT HOME WITH HIM, OT TELLS ME HE IS NOT GOING TO ALLOW IT TO BE THROWN AWAY. DISCUSSED WITH PT THAT I WOULD LIKE TO PLACE A DRESSING ON HIS RIGHT ARM DECISION. PT WILL NOT ALLOW DRESSING TO BE APPLIED AT THIS TIME. EDUCATION PROVIDED TO PT REGARDING HAVING WOUND COVERED TO HELP DECREASE RISK OF INFECTION. PT DECLINES DRESSING. PTS ROOM WITH MULTIPLE AREAS OF DIRTY LINEN, JUICE CUPS PAPER TOWELS AND SPILLED JUICE ON FLOOR OF ROOM. PT STATES HE WILL BE UPSET IF I TOUCH ANYTHING. PROVIDED PATIENT WITH TRASH BAGS AND WASH CLOTHS AND ASKED THAT HE CLEAN UP HIS ROOM. PT TELLS ME HE WOULD LIKE TO ORGANIZE AND CLEAN ROOM BY HIMSELF
--- NOTE | 2020-06-18 16:28 | NUR ---
1610 PT REQUESTS I COME IN TO HIS ROOM TO TALK WITH HIM AND HIS GIRLFRIEND. PT TELLS ME THAT HE HAS DECIDED TO GO HOME THIS EVENING HE HAS BEEN IN HOSPITAL 18 DAYS AND KNOWS HE CAN TAKE CARE OF HIMSELF WELL AT HOME IN THE HOSPITAL. DISCUSSED WITH PATIENT THAT RISKS OF LEAVING INCLUDE , WORSENING INFECTION OR POSSIBLE AMPUTATION. AMA FOR READ ALOUD TO PATIENT IN THE PRESENCE OF HIS GIRLFRIEND AND PT REQUESTS DISCHARGE. DISCUSSED WITH PATIENT IF HE HAS WORSENING PAIN, REDNESS, FEVER, DRAINAGE OR SWELLING HE SHOULD RETURN TO THE NEAREST EMERGENCY ROOM. DR MCCAIN NOTIFIED OF PATIENTS REQUEST AND ARRIVED AT ROOM TO SPEAK WITH PATIENT
--- NOTE | 2020-06-18 16:41 | NUR ---
PT CALLED RN TO ROOM PT SWAYING WHILE STANDING, EYES SHUTTING WHILE HE IS STANDING TALKING TO ME. PTS GIRLFRIEND AT BEDSIDE. PT STATES HE WISHES TO HAVE DINNER AND WILL THEN LEAVE. DISCUSSED WITH PATIENT THAT HE APPEARS UNSTEADY ON FEET AT THIS TIME, PT STATES IM FINE" AND STATES HE PLANS TO LEAVE SOON HE HAS DINNER
--- NOTE | 2020-06-18 16:59 | NUR ---
PT WALKING IN [place] WITH GIRLFRIEND. PT STATES HE IS GOING FOR A WALK AND WILL BE BAXK
--- NOTE | 2020-06-18 17:34 | NUR ---
PROVIDED WRITTEN RX TO PATIENT FOR AUGMENTIN AND PRESCRIPTION FAXED TO [facility]. PT INSTRUCTED TO CALL DR DAVID CORONADO ON 06/21/20 FOR FOLLOW UP . PT INSTRUCTED THAT HE MAY SHOWER AND PAT INCISION DRY . PT TELLS ME THAT HE HAS BEEN PICKING AT INCISIONS.INSTRUCTED PATIENT TO NOT TOUCH INCISION, TO KEEP COVERED, PT DECLINE MY OFFER TO APPLY DRESSING OR BE GIVEN ANY DRESSINGS. PT GAVE VERBAL CONSENT FOR WOUNDS TO BE PHOTOGRAPHED AND PHOTOS TAKEN.
--- NOTE | 2020-06-18 17:56 | NUR ---
1755 PT DISCHARGED AMA ACCOMPANIED BY HIS GIRLFRIEND. PT DECLINES OFFER OF WHEELCHAIR AND AMBULAED OFF OF FLOOR
== END 2020-06-18 17:55 | disposition left against medical advice (07) | DRG 853 ==
LOC: ER 23:23 → ICUW 05-31 04:20 → SURS 05-31 04:20 → ICUE 05-31 04:20 → ERHOLD 05-31 04:20 → ICUE 05-31 05:43 → SURS 05-31 19:03 → ICUW 06-09 02:59 → PCU 06-10 11:20 → SURS 06-11 15:21
PROVIDERS: Emergency Medicine; Family Medicine; Internal Medicine; Internal Medicine Infectious Disease; Internal Medicine Pulmonary Disease; Nurse Practitioner Acute Care; Orthopaedic Surgery; Pharmacist; ADMIT Internal Medicine
PROC: 0RBG0ZZ Excision of Right Acromioclavicular Joint, Open Approach (ICD-10-PCS; principal; 2020-05-31 14:00)
PROC: 0RBG0ZZ Excision of Right Acromioclavicular Joint, Open Approach (ICD-10-PCS; 2020-06-02)
PROC: 0RBG0ZZ Excision of Right Acromioclavicular Joint, Open Approach (ICD-10-PCS; 2020-06-04)
PROC: 0PB50ZZ Excision of Right Scapula, Open Approach (ICD-10-PCS; 2020-06-07)
PROC: 0W9930Z Drainage of Right Pleural Cavity with Drainage Device, Percutaneous Approach (ICD-10-PCS; 2020-06-09)
PROC: 0PD Upper Bones, Extraction (ICD-10-PCS; 2020-06-15)
DX: A40.1 Sepsis due to streptococcus, group B (principal); I26.90 Septic pulmonary embolism without acute cor pulmonale; M60.009 Infective myositis, unspecified site; T83.83XA Hemorrhage due to genitourinary prosthetic devices, implants and grafts, initial encounter; M00.9 Pyogenic arthritis, unspecified; M86.9 Osteomyelitis, unspecified; E87.1 Hypo-osmolality and hyponatremia; J94.2 Hemothorax; F30.9 Manic episode, unspecified; J94.8 Other specified pleural conditions; E11.65 Type 2 diabetes mellitus with hyperglycemia; E88.09 Other disorders of plasma-protein metabolism, not elsewhere classified; F17.210 Nicotine dependence, cigarettes, uncomplicated; Z91.14 Patient's other noncompliance with medication regimen; M71.012 Abscess of bursa, left shoulder; F11.10 Opioid abuse, uncomplicated; F45.1 Undifferentiated somatoform disorder; R33.8 Other retention of urine; Z20.822 Contact with and (suspected) exposure to COVID-19
CPT/HCPCS: 0241U; 32557; 36415; 36430; 71045; 71250; 71260; 73030; 74177; 80048; 80053; 80069; 80202; 81001; 82042; 82607; 82728; 82746; 82945; 82947; 83036; 83540; 83550; 83605; 83615; 83735; 83880; 83986; 84145; 84157; 84439; 84443; 85025; 85027; 85610; 85651; 85730; 86140; 86317; 86704; 86708; 86803; 86850; 86900; 86901; 86923; 87040; 87070; 87071; 87075; 87086; 87147; 87184; 87205; 87340; 87389; 87522; 88305; 88311; 88312; 89051; 93306; 93308; 93321; 93970; 96365; 96366; 96375; 96376; 97110; 97165; 97530; 99285; A9270; C1713; C1751; J0295; J0330; J0360; J0696; J1100; J1170; J1815; J1885; J1940; J2060; J2250; J2270; J2405; J2543; J2704; J2710; J2765; J2916; J3010; J3260; J3370; J3480; J7030; J7050; J7060; J7120; P9016; P9046; Q9967

== ENCOUNTER 2021-08-30 22:10 | Emergency (ER) | payer OTHER ==
[~2021-08-30] VITALS: Ht 182.9 cm; Wt 97.5 kg
== END 2021-08-30 22:26 | disposition left against medical advice (07) ==
LOC: ER 22:10
DX: T40.601A Poisoning by unspecified narcotics, accidental (unintentional), initial encounter (principal); F17.210 Nicotine dependence, cigarettes, uncomplicated
CPT/HCPCS: 99284

== ENCOUNTER 2024-09-06 14:55 | Emergency (ER) | payer OTHER ==
[~2024-09-06] VITALS: Ht 182.9 cm; Wt 88.9 kg
[2024-09-06] MEDS ORDERED: METF500 PO (15:14)
[2024-09-06] MEDS ORDERED: HYDCHL25 PO (15:15)
[2024-09-06] MEDS ORDERED: SUBOXONE 8 MG-1 EACH SL (15:15)
[2024-09-06] MEDS ORDERED: TRAZ50 PO (15:15)
[2024-09-06] MEDS ORDERED: LISI5 PO (15:15)
[2024-09-06] MEDS ORDERED: NS 1,000 ML IV SCH (15:50)
[2024-09-06 16:12] LABS: BASOPHILS ABSOLUTE AUTO 0.04 K/mm3 (0.00-0.23); BASOPHILS PERCENT AUTO 1 % (0-2); EOSINOPHILS ABSOLUTE AUTO 0.17 K/mm3 (0.00-0.68); EOSINOPHILS PERCENT AUTO 2 % (0-6); Hematocrit 37.5 % (37.0-53.0); Hemoglobin 12.8 g/dL (13.5-17.5); IMMATURE GRAN ABSOLUTE AUTO 0.03 K/mm3 (0.00-0.10); IMMATURE GRAN PERCENT AUTO 0 % (0-1); LYMPHOCYTES ABSOLUTE AUTO 1.07 K/mm3 (0.84-5.20); LYMPHOCYTES PERCENT AUTO 14 % (21-46); MONOCYTES ABSOLUTE AUTO 1.06 K/mm3 (0.16-1.47); MONOCYTES PERCENT AUTO 14 % (4-13); Mean Corpuscular HGB 28.1 pg (26.0-34.0); Mean Corpuscular HGB Conc 34.1 g/dL (31.5-36.5); Mean Corpuscular Volume 82 fL (80-100); Mean Platelet Volume 9.7 fL (9.1-12.4); NEUTROPHILS ABSOLUTE AUTO 5.07 K/mm3 (1.96-9.15); NEUTROPHILS PERCENT AUTO 68 % (41-73); Platelet Count 243 K/mm3 (150-400); RDW Coefficient Variation 12.8 % (11.7-14.2); RDW Standard Deviation 38.8 fL (35.1-46.3); Red Blood Cell Count 4.56 M/mm3 (4.30-5.90); White Blood Cell Count 7.44 K/mm3 (4.00-11.30)
[2024-09-06 16:47] LABS: Albumin, Blood 3.5 g/dL (3.4-5.0); Albumin/Globulin Ratio 0.8 (0.8-1.8); Bilirubin, Total 0.3 mg/dL (0.1-1.0); Bun/Creatinine Ratio 31.4 (12.0-20.0); Calcium, Blood 8.7 mg/dL (8.5-10.1); Creatinine, Blood 0.57 mg/dL (0.60-1.20); Globulin, Blood 4.2 g/dL (2.2-4.0); Potassium, Blood 3.6 mmol/L (3.5-5.5); Total Protein, Blood 7.7 g/dL (6.4-8.2)
[2024-09-06 17:13] VITALS: BP 137/95
== END 2024-09-06 17:13 | disposition home or self-care (01) ==
LOC: ER 14:55
PROVIDERS: Student in an Organized Health Care Education/Training Program
DX: E11.65 Type 2 diabetes mellitus with hyperglycemia (principal); F11.21 Opioid dependence, in remission; E86.0 Dehydration; F17.210 Nicotine dependence, cigarettes, uncomplicated
CPT/HCPCS: 80053; 82947; 85025; 96360; 99284-25; J7030